=== PATIENT | female | born 1995 | race American Indian/Alaskan Native ===

== ENCOUNTER 2018-08-14 05:46 | Day surgery (SDC) | payer OTHER ==
[~2018-08-14 05:46] MED LIST: ANCEF/STERILE WATER 2 GM/20 ML 2 GM/20 ML SYRINGE IV NR
[2018-08-14] MEDS ORDERED: NACL BACTERIOSTATIC INFILTRATI ONE (06:20)
[2018-08-14] MEDS ORDERED: ADRENALIN IV ONE (06:26)
[2018-08-14] MEDS ORDERED: XYLOCAINE 1% 20 mL ONE ×2 (06:26→10:28)
[2018-08-14] MEDS ORDERED: NACL 0.9% 1000 ML 4,000 ML ONE (06:26)
[2018-08-14] MEDS ORDERED: XYLOCAINE 1%/ EPI 1:100,000 INFILTRATI ONE ×2 (06:27→08:42)
[2018-08-14] MEDS ORDERED: LACTATED RINGERS 1,000 ML IV SCH (07:00)
[2018-08-14] MEDS ORDERED: ADRENALINE P/F ONE ×2 (07:12→10:28)
[2018-08-14] MEDS ORDERED: SUBLIMAZE ONE ×2 (07:17→11:31)
[2018-08-14] MEDS ORDERED: DIPRIVAN 10 MG/ML IV ONE (07:17)
[2018-08-14] MEDS ORDERED: SUBLIMAZE IV PRN (07:22)
[2018-08-14] MEDS ORDERED: DILAUDID IV PRN (07:22)
[2018-08-14] MEDS ORDERED: ZOFRAN IV PRN ×2 (07:22→14:26)
[2018-08-14] MEDS ORDERED: DEMEROL IV PRN (07:22)
[2018-08-14] MEDS ORDERED: NARCAN 0.4 MG/1 ML IV PRN (07:22)
--- NOTE | 2018-08-14 07:22 | Anesthesia Consultation ---
Anesthesia Consult and Med Hx Date of service: 08/14/18 - Airway Anesthetic Teeth Evaluation: Good ROM Head & Neck: Adequate Mental/Hyoid Distance: Adequate Mallampati Class: Class II Intubation Access Assessment: Good - Pulmonary Exam CTA: Yes - Cardiac Exam Cardiac Exam: RRR - Pre-Operative Health Status ASA Pre-Surgery Classification: ASA3 Proposed Anesthetic Plan: General - Pulmonary Hx Smoking: Yes (HOOKAH SINCE AGE 17) Hx Asthma: Yes (RESCUE INHALER) - Central Nervous System Hx Psychiatric Problems: Yes - Other Systems Hx Alcohol Use: Yes Hx Substance Use: No Hx Cancer: No Hx Obesity: Yes
--- NOTE | 2018-08-14 07:22 | Anesthesia Day of Surgery ---
Anesthesia Day of Surgery - Day of Surgery Patient Examined: Yes Patient H&P Reviewed: Yes Patient is NPO: Yes Beta Blockers: No Cardiac Clearance: No Pulmonary Clearance: No
[2018-08-14] MEDS ORDERED: VERSED IV NR (08:00)
[2018-08-14] MEDS ORDERED: NACL 0.9% 1000 ML IR ONE ×2 (08:39)
[2018-08-14] MEDS ORDERED: ADRENALINE P/F IV ONE ×2 (08:40)
[2018-08-14] MEDS ORDERED: XYLOCAINE 1% 20 mL INFILTRATI ONE ×2 (08:41)
[2018-08-14] MEDS ORDERED: NACL 0.9% IR ONE (08:41)
[2018-08-14] MEDS ORDERED: DILAUDID ONE (09:33)
[2018-08-14] MEDS ORDERED: ZEMURON IV ONE (09:33)
[2018-08-14] MEDS ORDERED: XYLOCAINE MPF 2% ONE (09:33)
[2018-08-14] MEDS ORDERED: DECADRON ONE (09:33)
[2018-08-14] MEDS ORDERED: NACL 0.9% 1000 ML 1,000 ML ONE (10:28)
--- NOTE | 2018-08-14 12:37 | Post Anesthesia Evaluation ---
- Post Anesthesia Evaluation Patient Participated: Yes Airway Patent: Yes Stable Respiratory Function: Yes Nausea/Vomiting: No Temp > 96.8F: Yes Pain Manageable: Yes Adequeate Hydration: Yes Anesthesia Complications: No
[2018-08-14] MEDS ORDERED: ANCEF ONE (12:42)
[2018-08-14] MEDS ORDERED: ZOFRAN ONE (13:46)
[2018-08-14] MEDS ORDERED: BLOXIVERZ ONE (13:46)
[2018-08-14] MEDS ORDERED: ROBINUL ONE (13:46)
[2018-08-14] MEDS ORDERED: TORADOL ONE (14:09)
[2018-08-14] MEDS ORDERED: NORCO 7.5/325 PO PRN (14:26)
[2018-08-14] MEDS ORDERED: ROBAXIN PO PRN (14:26)
--- NOTE | 2018-08-14 14:26 | Operative Report ---
Operative Report Operative Report: Plastic Surgery Operative Note Preoperative Diagnosis: Unacceptable cosmetic appearance Postoperative Diagnosis: Same Procedure: Lipsuction of the upper and lower abdomen, full waistline with fat grafting to the buttocks and hips. 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 She was interested in using her fat to improve buttock volume and shape. We discussed liposuction with fat grafting to the buttocks and hips in great detail, including the risks of the procedure. The patient understood and accepted these risks and desired to proceed with surgery. Informed consent was obtained. Procedure: The patient was marked in preoperative holding and brought into the operating room where she was placed supine on the OR table. After induction of adequate general endotracheal anesthesia the abdomen was prepped with chlorhexidine and draped in the usual sterile surgical fashion. To begin, 1% lidocaine with epinephrine was infiltrated into the marked port entry sites. Using a No. 11 blade, cannula entry points were opened, and tumescent solution was infiltrated through these same incisions. A total of 4 L was infiltrated into the subcutaneous tissue of the abdomen. After allowing adequate time for epinephrine effect, power assisted liposuction was performed until the aspirate was bloody and a desireable contour was achieved. Fat was collected in a steri le cannister and allowed to separate from fluid aspirate by gravity. Incisions were closed with 4-0 Monocryl suture. The patient was then placed in the prone position and once again cannula entry sites were injected with local anesthesia and opened with an 11 blade. 1 L of tumescent solution was infiltrated into the subcutaneous tissue of the posterior waist, and power assisted liposuction used to remove excess fat. Once satisfied with the contour we began the fat grafting portion of the procedure. Using blunt large bore cannulas, fat was injected into the subcutaneous tissue of the buttocks and hips bilaterally until a desireable contour was achieved. A total of 1440cc of pure fat was injected on the right, and 1290cc was injected on the left. Once fat grafting was complete, 4-0 Monocryl was used to close all cannula entry points. All areas where incisions were placed were then dressed with abdominal pads and then a compression garment was placed. Patient was then awakened from general anesthesia and transferred to the PACU in stable condition. She tolerated the procedure well. All sponge needle and instrument counts were correct at the end of the case.
[2018-08-14] MEDS ORDERED: ISOPTO TEARS 0.5% OU PRN (15:27)
[2018-08-14 16:42] VITALS: BP 135/73
--- NOTE | 2018-08-14 16:55 | Post Anesthesia Evaluation ---
- Post Anesthesia Evaluation Patient Participated: Yes Airway Patent: Yes Stable Respiratory Function: Yes Nausea/Vomiting: No Temp > 96.8F: Yes Pain Manageable: Yes Adequeate Hydration: Yes Other Comments: Patient complained of bilateral blurry vision while in PACU which was not present preoperatively. No eye pain, normal light and color vision. VS at preop baseline and exam revealed bilateral eye redness only. At time of discharge, patient reported some improvement. Patient given artificial tears for use q6h as needed and instructed to follow up with ophthomology if vision not back to baseline by tomorrow morning. Patient given contact information for Dr. Poli Graham's office (I was told by rabbler that patient can be seen by Dr. Quintanilla as outpatient tomorrow if needed). Anesthesia provider will call patient tomorrow for follow up.
--- NOTE | 2018-08-15 14:30 | Event Note ---
Date: 08/15/18 (Attempted Phone Follow-Up) 08/15/18 - Attempted to contact patient as discussed yesterday regarding post-op blurred vision via cell phone number provided to me by the patient. No answer x3 and no option to leave voicemail. Attempted to contact NOK (Rupert Armstrong, Aunt) at number listed in EMR with no response.
--- NOTE | 2018-08-19 08:54 | Event Note ---
Date: 08/19/18 (Phone Follow-Up) 08/19/18 1291 - Spoke with Ms. Hodge via telephone regarding complaint of post- op blurred vision. She reports that after 4 days, vision returned to normal and is now at preop baseline. She did not require a visit to the ophthomologist. She has no additional anesthetic concerns at this time.
== END 2018-08-14 17:20 | disposition home or self-care (01) ==
LOC: OR 05:46
PROVIDERS: ATTEND Plastic Surgery
DX: Z41.1 Encounter for cosmetic surgery (principal); E66.9 Obesity, unspecified; F41.9 Anxiety disorder, unspecified; F17.210 Nicotine dependence, cigarettes, uncomplicated; Z72.89 Other problems related to lifestyle; Z68.41 Body mass index [BMI] 40.0-44.9, adult; Z79.899 Other long term (current) drug therapy; Z98.890 Other specified postprocedural states; Z80.3 Family history of malignant neoplasm of breast
CPT/HCPCS: 15877; 20926; 81025; J0171; J0690; J1100; J1170; J1885; J2250; J2405; J2704; J2710; J3010; J7030; J7120

== ENCOUNTER 2018-08-28 19:57 | Inpatient (IN) | payer BC, OTHER ==
--- NOTE | 2018-08-28 20:12 | Emergency Department Report ---
Blank Doc - Documentation Documentation: This is a 23-year-old female that presents with swelling and infection to left buttock area. Patient had a surgery to butt lift. Patient was sent by surgeon. This initial assessment/diagnostic orders/clinical plan/treatment(s) is/are subject to change based on patient's health status, clinical progression and re- assessment by fellow clinical providers in the ED. Further treatment and workup at subsequent clinical providers discretion. Patient/guardians urged not to francis pe from the ED as their condition may be serious if not clinically assessed and managed. Initial orders include: 1- Patient sent to MAIN ED for further evaluation and treatment 2- labs
[2018-08-28 20:38] LABS: Hematocrit 25.9 % (30.3-42.9); Hemoglobin 8.7 gm/dl (10.1-14.3); Mean Corpuscular HGB Conc 34 % (30-34); Mean Corpuscular Volume 87 fl (79-97); Platelet Count 790 K/mm3 (140-440); Red Blood Count 2.99 M/mm3 (3.65-5.03); Red Cell Distribution Width 14.1 % (13.2-15.2)
[2018-08-28 20:55] LABS: Alanine Aminotransferase 26 units/L (7-56); BUN/Creatinine Ratio 9; Blood Urea Nitrogen 7 mg/dL (7-17); Hemolysis Index 5
[2018-08-28 21:25] LABS: Basophils % (Manual) 0 % (0.0-1.8); Eosinophils % (Manual) 0 % (0.0-4.3); Total Cells Counted 100
[2018-08-28 21:26] LABS: Platelet Estimate Consistent w Auto
[2018-08-28] MEDS ORDERED: VANCOMYCIN/NS 1 GM/250 ML 1 GM/250 ML BAG IV ONE (21:26)
[2018-08-28] MEDS ORDERED: MAXIPIME/NS 1 GM/100 ML 1 GM/100 ML BAG IV ONE (21:26)
[2018-08-28 21:27] LABS: Anisocytosis Few; Hypersegmented Neutrophils Few; Stomatocytes Few
[2018-08-28] MEDS ORDERED: NACL 0.9% 1000 ML 1,000 ML IV ONE ×2 (21:41→23:26)
[2018-08-29] MEDS ORDERED: MORPHINE ONE
[2018-08-29] MEDS ORDERED: MORPHINE IV ONE (00:15)
--- NOTE | 2018-08-29 01:14 | Emergency Department Report ---
- General Chief complaint: Skin/Abscess/Foreign Body Stated complaint: INFECTION AFTER PLASTIC SURGERY Time Seen by Provider: 08/28/18 20:09 Source: patient Mode of arrival: Ambulatory Limitations: No Limitations - History of Present Illness Initial comments: 23-year-old female status post Liberian butt lift fat grafting procedure on August 14. Patient had a procedure performed here at [facility] by Dr. Hinkle. Patient reports a few days ago she began having pain in the left buttock. Patient states the area was warm to the touch. He reports fever of 102. Patient followed up with surgeon in her office on yesterday and was given a prescription for Bactrim. Patient continued to spike fevers, so surgeon instructed her to come to the ER so that she may be admitted for IV antibiotics. Pt reports left buttock has been hard since the surgery. -: days(s) (3) Location: buttocks Severity: moderate Quality: aching Consistency: constant Improves with: none, other (laying prone) Worsens with: palpation, other (laying supine) Context: other (recent surgery) Associated symptoms: fever Treatments Prior to Arrival: antibiotic (bactrim) - Related Data Home Medications Medication Instructions Recorded Confirmed Last Taken Albuterol Sulfate [Ventolin Hfa] 1 puff IH Q6H PRN 08/12/18 08/14/18 08/14/18 05:45 buPROPion SR [Wellbutrin Sr] 150 mg PO BID 08/12/18 08/14/18 08/14/18 04:45 Allergies Allergy/AdvReac Type Severity Reaction Status Date / Time No Known Allergies Allergy Verified 08/12/18 18:13 Abscess Boil HPI - HPI Chief Complaint: Skin/Abscess/Foreign Body Stated Complaint: INFECTION AFTER PLASTIC SURGERY Time Seen by Provider: 08/28/18 20:09 Home Medications: Home Medications Medication Instructions Recorded Confirmed Last Taken Albuterol Sulfate [Ventolin Hfa] 1 puff IH Q6H PRN 08/12/18 08/14/18 08/14/18 05:45 buPROPion SR [Wellbutrin Sr] 150 mg PO BID 08/12/18 08/14/18 08/14/18 04:45 Allergies/Adverse Reactions: Allergies Allergy/AdvReac Type Severity Reaction Status Date / Time No Known Allergies Allergy Verified 08/12/18 18:13 ED Review of Systems ROS: Stated complaint: INFECTION AFTER PLASTIC SURGERY Other details as noted in HPI Comment: All other systems reviewed and negative Constitutional: fever Respiratory: denies: cough, shortness of breath Gastrointestinal: denies: abdominal pain, nausea, vomiting Neurological: denies: headache ED Past Medical Hx - Past Medical History Hx Asthma: Yes (RESCUE INHALER) Hx HIV: No - Social History Smoking Status: Never Smoker Substance Use Type: None - Medications Home Medications: Home Medications Medication Instructions Recorded Confirmed Last Taken Type Albuterol Sulfate [Ventolin Hfa] 1 puff IH Q6H PRN 08/12/18 08/14/18 08/14/18 05:45 History buPROPion SR [Wellbutrin Sr] 150 mg PO BID 08/12/18 08/14/18 08/14/18 04:45 History ED Physical Exam - General Limitations: No Limitations General appearance: alert, in no apparent distress - Head Head exam: Present: atraumatic, normocephalic - Eye Eye exam: Present: normal appearance - ENT ENT exam: Present: mucous membranes moist - Neck Neck exam: Present: normal inspection - Respiratory Respiratory exam: Present: normal lung sounds bilaterally. Absent: respiratory distress - Cardiovascular Cardiovascular Exam: Present: normal rhythm, tachycardia - GI/Abdominal GI/Abdominal exam: Present: soft. Absent: distended, tenderness - Extremities Exam Extremities exam: Present: normal inspection - Neurological Exam Neurological exam: Present: alert, oriented X3 - Psychiatric Psychiatric exam: Present: normal affect, normal mood - Skin Skin exam: Present: other (left buttock is firm and indurated, warm, tender to palpation, no erythema or fluctuance appreciated) ED Course Vital Signs 08/28/18 08/28/18 08/28/18 20:06 21:32 21:45 Temperature 99.0 F Pulse Rate 117 H 106 H Respiratory 20 18 Rate Blood Pressure 101/77 122/61 O2 Sat by Pulse 81 L 84 97 Oximetry 08/28/18 08/28/18 08/28/18 22:00 22:15 22:31 Temperature Pulse Rate 99 H 98 H 103 H Respiratory 21 19 20 Rate Blood Pressure 127/61 123/64 123/64 O2 Sat by Pulse 97 96 99 Oximetry 08/28/18 22:45 Temperature Pulse Rate 101 H Respiratory 21 Rate Blood Pressure 123/64 O2 Sat by Pulse 97 Oximetry ED Medical Decision Making - Lab Data Result diagrams: 08/28/18 20:15 08/28/18 20:15 - Radiology Data Radiology results: report reviewed, image reviewed - Medical Decision Making 23 yo F w/ large intramuscular abscess of the left gluteal guillermo muscle. Pt has WBCs of 20, normal lactic acid. Pt has been slightly tachycardic with normal blood pressures. 2L bolus of normal saline given. Blood cultures drawn, pt started on vancomycin and cefepime. I spoke to pt's surgeon, Dr Hinkle. She is aware of CT findings. Will see pt in the morning. Will [facility] to [facility]. - Differential Diagnosis cellulitis, abscess, uti Critical care attestation.: If time is entered above; I have spent that time in minutes in the direct care of this critically ill patient, excluding procedure time. ED Disposition Clinical Impression: Gluteal abscess Disposition: OP ADMIT IP TO THIS HOSP Is pt being admited?: Yes Condition: Stable Referrals: MK SEVILLA MD [Primary Care Provider] - 3-5 Days Time of Disposition: 01:49
--- NOTE | 2018-08-29 01:17 | Cat Scan Report ---
PROCEDURE: CT PELVIS W CON TECHNIQUE: Computerized axial tomography of the pelvis was performed following the IV injection of i odinated nonionic contrast. CT DOSE LENGTH PRODUCT: mGycm HISTORY: fever, left buttock pain; s/p Cameroonian butt lift COMPARISONS: None . FINDINGS: There is a complex multi loculated fluid collection in the left gluteus guillermo muscle measuring appr oximately 7.6 x 12.4 x 5.3 cm suggesting an abscess. There is induration of the overlying subcutaneou s fat suggesting cellulitis. There is no subcutaneous or intramuscular air or foreign body. The bony structures are intact. The pelvic contents are unremarkable. IMPRESSION: Large complex intramuscular abscess of the left gluteus guillermo as described. . This document is electronically signed by Bry Guerrero MD., Aug 29 2018 01:15:56 AM ET
[2018-08-29 01:27] LABS: Bilirubin,Urine NEG (Negative); Blood,Urine NEG (Negative); Color,Urine Yellow (Yellow); Protein,Urine <15 mg/dL mg/dL (Negative); Urobilinogen,Urine < 2.0 mg/dL (<2.0); WBC,Urine < 1.0 /HPF (0.0-6.0)
[2018-08-29] MEDS ORDERED: ANCEF ONE (02:51)
[2018-08-29] MEDS ORDERED: ZOFRAN IV PRN (03:21)
[2018-08-29] MEDS ORDERED: SODIUM CHLORIDE FLUSH SYRINGE 10 ML IV PRN (03:21)
[2018-08-29] MEDS ORDERED: TYLENOL PO ONE (03:29)
--- NOTE | 2018-08-29 03:29 | History and Physical Report ---
History of Present Illness Date of examination: 08/29/18 History of present illness: 23-year-old lady with a history of PCOS, asthma, comes emergency room with complaints of pain in the left buttock. Status post Polish butt lift on the first, states that the left side was not healing as fast as the right. The left side felt hot, tight and pain ful. She saw her plastic surgeon yesterday who gave her Bactrim, Percocet, her symptoms worsen, develop fever and she was sent to the emergency room for further evaluation Review of systems Constitutional: no weight loss, chills Ears, eyes, nose, mouth and throat: no nasal congestion, no nasal discharge, no sinus pressure, no vision change, no red eye. Neck: No neck pain or rigidity. Cardiovascular: no palpitations, chest pain Respiratory: no cough, shortness of breath Gastrointestinal: no hematochezia, abdominal pain Genitourinary : no frequency , no hematuria Musculoskeletal: no joint swelling or muscle ache Integumentary: no rash, no pruritis Neurological: no parathesias, no focal weakness Endocrine: no cold or heat intolerance, no polyuria or polydipsia Hematologic/Lymphatic: no easy bruising, no easy bleeding, no gland swelling Allergic/Immunologic: no urticaria, no angioedema. PAST MEDICAL HISTORY: PCOS, asthma, PAST SURGICAL HISTORY: Polish butt lift SOCIAL HISTORY: +alcohol, no drugs,+ tobacco FAMILY HISTORY: Hypertension Medications and Allergies Allergies Allergy/AdvReac Type Severity Reaction Status Date / Time No Known Allergies Allergy Verified 08/12/18 18:13 Home Medications Medication Instructions Recorded Confirmed Last Taken Type Albuterol Sulfate [Ventolin Hfa] 1 puff IH Q6H PRN 08/12/18 08/29/18 08/14/18 05:45 History buPROPion SR [Wellbutrin SR] 150 mg PO BID 08/12/18 08/29/18 08/14/18 04:45 History Amoxicillin/K Clav Tab [Augmentin 1 each PO Q12HR #16 tablet 09/03/18 Unknown Rx 875MG TAB] Doxycycline Monohydrate 100 mg PO BID #16 capsule 09/03/18 Unknown Rx HYDROcodone/APAP 5-325 [Ava 1 each PO Q6HR PRN #10 tablet 09/03/18 Unknown Rx 5/325] Active Meds: Active Medications Acetaminophen (Tylenol) 650 mg PO Q4H PRN PRN Reason: Pain MILD(1-3)/Fever >100.5/SHIN Enoxaparin Sodium (Lovenox) 30 mg SUB-Q QDAY RYLEY Piperacillin Sod/Tazobactam Sod (Zosyn/Ns 4.5gm/100ml) 4.5 gm in 100 mls @ 200 mls/hr IV Q8HR RYLEY; Protocol Sodium Chloride (Nacl 0.9% 1000 Ml) 1,000 mls @ 150 mls/hr IV DIRECT RYLEY Morphine Sulfate (Morphine) 2 mg IV Q4H PRN PRN Reason: Pain, Moderate (4-6) Ondansetron HCl (Zofran) 4 mg IV Q8H PRN PRN Reason: Nausea And Vomiting Sodium Chloride (Sodium Chloride Flush Syringe 10 Ml) 10 ml IV BID RYLEY Sodium Chloride (Sodium Chloride Flush Syringe 10 Ml) 10 ml IV PRN PRN PRN Reason: LINE FLUSH Exam - Physical Exam Narrative exam: General Apperance: The patient lying in bed, breathing comfortable HEENT: Normocephalic, atraumatic. Pupils equally round and reactive to light, EOMI, no sclericterus or JVD or thyromegaly or nodule. , no carotid bruit, mucous membranes moist, no exudate or erythema Heart: S1-S2, regular is rhythm Lungs: Clear to auscultation bilaterally, breathing comfortable Abdomen: Positive bowel sounds, soft, nontender, nondistended, no organomegaly Extremities: Left buttock diffusely tender, warm to touch, edematous No edema cyanosis clubbing Skin: no rash, nodule, warm and dry Neuro: cranial nerves 2-12 intact, speech is fluent, motor/sensory intact - Constitutional Vitals: Temp Pulse Resp BP Pulse Ox 103.1 F H 110 H 25 H 122/62 97 08/29/18 03:24 08/29/18 03:24 08/29/18 03:24 08/29/18 03:24 08/29/18 03:24 Results - Labs CBC & Chem 7: 09/02/18 11:33 08/30/18 04:34 Labs: Abnormal lab results 08/28/18 08/28/18 08/29/18 Range/Units 20:15 20:15 01:10 WBC 20.4 H (4.5-11.0) K/mm3 RBC 2.99 L (3.65-5.03) M/mm3 Hgb 8.7 L (10.1-14.3) gm/dl Hct 25.9 L (30.3-42.9) % Plt Count 790 H (140-440) K/mm3 Monocytes % (Manual) 10.0 H (0.0-7.3) % Seg Neutrophils # Man 13.7 H (1.8-7.7) K/mm3 Monocytes # (Manual) 2.0 H (0.0-0.8) K/mm3 Sodium 132 L (137-145) mmol/L Chloride 93.2 L (98-107) mmol/L Glucose 112 H (65-100) mg/dL Albumin 3.0 L (3.9-5) g/dL U Epithel Cells (Auto) 16.0 H (0-13.0) /HPF - Imaging and Cardiology CT scan - pelvis: report reviewed Assessment and Plan Assessment Left buttock abscess Hyponatremia PCOS Asthma Plan Start IV vancomycin, Zosyn, fluid surgery was consulted to see the patient Appendectomy morphine, DVT prophylaxis
[2018-08-29] MEDS ORDERED: TYLENOL ONE ×2 (03:34→10:44)
[2018-08-29] MEDS ORDERED: NACL 0.9% 1000 ML 1,000 ML ONE (03:34)
[2018-08-29] MEDS: ZOSYN/NS 4.5GM/100ML 4.5 GM/100 ML VIAL IV SCH ×3 (04:00→21:00)
[2018-08-29] MEDS: NACL 0.9% 1000 ML 1,000 ML IV SCH (05:48)
[2018-08-29] MEDS: MORPHINE IV PRN ×3 (06:32→18:30)
--- NOTE | 2018-08-29 08:40 | Progress Note ---
Subjective Date of service: 08/29/18 Principal diagnosis: Left gluteal abscess Interval history: Plastic Surgery Progress Note This patient is a Objective - Constitutional Vitals: Vital Signs - 12hr 08/28/18 08/28/18 08/28/18 21:32 21:45 22:00 Temperature Pulse Rate 106 H 99 H Respiratory 18 20 Rate Blood Pressure 122/61 127/61 Blood Pressure [Left] O2 Sat by Pulse 84 97 97 Oximetry 08/28/18 08/28/18 08/28/18 22:15 22:31 22:45 Temperature Pulse Rate 98 H 103 H 101 H Respiratory 19 20 21 Rate Blood Pressure 123/64 123/64 123/64 Blood Pressure [Left] O2 Sat by Pulse 96 99 97 Oximetry 08/29/18 08/29/18 08/29/18 03:24 04:41 05:27 Temperature 103.1 F H 99.9 F H 98.8 F Pulse Rate 110 H 99 H 100 H Respiratory 25 H 19 20 Rate Blood Pressure 110/50 Blood Pressure 122/62 97/55 [Left] O2 Sat by Pulse 97 99 95 Oximetry 08/29/18 08/29/18 05:34 07:28 Temperature 98.4 F Pulse Rate 92 H Respiratory 18 18 Rate Blood Pressure 134/69 Blood Pressure [Left] O2 Sat by Pulse 96 Oximetry - Labs CBC & Chem 7: 08/28/18 20:15 08/28/18 20:15 Labs: Abnormal lab results 08/28/18 08/28/18 08/29/18 Range/Units 20:15 20:15 01:10 WBC 20.4 H (4.5-11.0) K/mm3 RBC 2.99 L (3.65-5.03) M/mm3 Hgb 8.7 L (10.1-14.3) gm/dl Hct 25.9 L (30.3-42.9) % Plt Count 790 H (140-440) K/mm3 Monocytes % (Manual) 10.0 H (0.0-7.3) % Seg Neutrophils # Man 13.7 H (1.8-7.7) K/mm3 Monocytes # (Manual) 2.0 H (0.0-0.8) K/mm3 Sodium 132 L (137-145) mmol/L Chloride 93.2 L (98-107) mmol/L Glucose 112 H (65-100) mg/dL Albumin 3.0 L (3.9-5) g/dL U Epithel Cells (Auto) 16.0 H (0-13.0) /HPF Medications & Allergies - Medications Allergies/Adverse Reactions: Allergies No Known Allergies Allergy (Verified 08/12/18 18:13) Home Medications: Home Medications Medication Instructions Recorded Confirmed Last Taken Type Albuterol Sulfate [Ventolin Hfa] 1 puff IH Q6H PRN 08/12/18 08/14/18 08/14/18 05:45 History buPROPion SR [Wellbutrin Sr] 150 mg PO BID 08/12/18 08/14/18 08/14/18 04:45 History Active Medications: Generic Name Dose Route Start Last Admin Trade Name Freq PRN Reason Stop Dose Admin Acetaminophen 650 mg 08/29/18 03:21 Tylenol PO Q4H PRN Pain MILD(1-3)/Fever >100.5/SHIN Enoxaparin Sodium 40 mg 08/29/18 10:00 Lovenox SUB-Q QDAY@1000 RYLEY Piperacillin Sod/Tazobactam Sod 4.5 gm in 100 mls @ 200 mls/hr 08/29/18 03:20 08/29/18 04:00 Zosyn/Ns 4.5gm/100ml IV 200 mls/hr Q8HR RYLEY Administration Protocol Sodium Chloride 1,000 mls @ 150 mls/hr 08/29/18 04:00 08/29/18 05:48 Nacl 0.9% 1000 Ml IV 150 mls/hr DIRECT RYLEY Administration Morphine Sulfate 2 mg 08/29/18 03:21 08/29/18 06:32 Morphine IV 2 mg Q4H PRN Administration Pain, Moderate (4-6) Ondansetron HCl 4 mg 08/29/18 03:21 08/29/18 06:36 Zofran IV 4 mg Q8H PRN Administration Nausea And Vomiting Sodium Chloride 10 ml 08/29/18 10:00 Sodium Chloride Flush Syringe 10 Ml IV BID RYLEY Sodium Chloride 10 ml 08/29/18 03:21 Sodium Chloride Flush Syringe 10 Ml IV PRN PRN LINE FLUSH
[2018-08-29] MEDS ORDERED: LOVENOX SUB-Q SCH (10:00)
[2018-08-29] MEDS ORDERED: SUBLIMAZE IV ONE ×2 (10:12→11:27)
[2018-08-29] MEDS ORDERED: VERSED IV ONE ×2 (10:12→10:26)
[2018-08-29] MEDS ORDERED: SUBLIMAZE ONE ×2 (10:26→11:28)
[2018-08-29] MEDS ORDERED: NACL 0.9% 500 ML 0 ML ONE (10:27)
[2018-08-29] MEDS: LOVENOX SUB-Q SCH (10:39)
[2018-08-29] MEDS ORDERED: ANCEF/STERILE WATER 2 GM/20 ML 2 GM/20 ML SYRINGE IV ONE (10:43)
[2018-08-29] MEDS: TYLENOL PO PRN ×2 (10:45→20:59)
[2018-08-29] MEDS ORDERED: ANCEF/STERILE WATER 2 GM/20 ML IV NR (11:00)
[2018-08-29] MEDS ORDERED: XYLOCAINE 1%/ EPI 1:100,000 INFILTRATI ONE (11:18)
--- NOTE | 2018-08-29 12:14 | Post Operative Note ---
Date of procedure: 08/29/18 Pre-op diagnosis: Large left gluteal multiloculated abscess Post-op diagnosis: same Findings: Near resolution of collection after drainage. 250 mL purulent fluid removed. Procedure: [address] guided drainage in the left gluteal intramuscular abscess Anesthesia: local (w/ conscious sedation) Surgeon: DEMOND HOLDER Estimated blood loss: minimal Condition: stable Disposition: floor
[2018-08-29] MEDS: SODIUM CHLORIDE FLUSH SYRINGE 10 ML IV SCH ×2 (13:39→22:23)
--- NOTE | 2018-08-29 16:40 | Progress Note ---
Subjective Date of service: 08/29/18 Principal diagnosis: Left gluteal abscess Interval history: Plastic Surgery Progress Patient underwent IR drainage of left gluteal abscess by Dr. Velez and is feeling much better than she was this morning. She is tired and reports tightness like spasms on occasion. Not much appetite. No cp, sob. Exam: T: 99.4, VSS Left buttock softer, more even with the right, IR drain in place, purulent fluid output. Unchanged redness. Plan: Continue IV Abx (switched to Zosyn) Encouraged PO intake as tolerated Will add Robaxin first dose now and then prn muscle spasm Follow up cultures Will re-assess tomorrow Objective - Constitutional Vitals: Vital Signs - 12hr 08/29/18 08/29/18 08/29/18 04:41 05:27 05:34 Temperature 99.9 F H 98.8 F Temperature [ Post-Procedure] Temperature [ Pre-Procedure] Pulse Rate 99 H 100 H Pulse Rate [ Intra-Procedure ] Pulse Rate [ Post-Procedure] Pulse Rate [Pre -Procedure] Respiratory 19 20 18 Rate Respiratory Rate [Intra- Procedure] Respiratory Rate [Post- Procedure] Respiratory Rate [Pre- Procedure] Blood Pressure 110/50 Blood Pressure [Intra- Procedure] Blood Pressure 97/55 [Left] Blood Pressure [Post-Procedure ] Blood Pressure [Pre-Procedure] O2 Sat by Pulse 99 95 Oximetry O2 Sat by Pulse Oximetry [ Intra-Procedure ] O2 Sat by Pulse Oximetry [Post -Procedure] O2 Sat by Pulse Oximetry [Pre- Procedure] 08/29/18 08/29/18 08/29/18 07:28 10:38 11:03 Temperature 98.4 F Temperature [ Post-Procedure] Temperature [ 101.5 F H Pre-Procedure] Pulse Rate 92 H Pulse Rate [ Intra-Procedure ] Pulse Rate [ Post-Procedure] Pulse Rate [Pre 104 H 103 H -Procedure] Respiratory 18 Rate Respiratory Rate [Intra- Procedure] Respiratory Rate [Post- Procedure] Respiratory 16 21 Rate [Pre- Procedure] Blood Pressure 134/69 Blood Pressure [Intra- Procedure] Blood Pressure [Left] Blood Pressure [Post-Procedure ] Blood Pressure 138/68 106/56 [Pre-Procedure] O2 Sat by Pulse 96 Oximetry O2 Sat by Pulse Oximetry [ Intra-Procedure ] O2 Sat by Pulse Oximetry [Post -Procedure] O2 Sat by Pulse 96 100 Oximetry [Pre- Procedure] 08/29/18 08/29/18 08/29/18 11:09 11:10 11:12 Temperature Temperature [ Post-Procedure] Temperature [ Pre-Procedure] Pulse Rate Pulse Rate [ 100 H Intra-Procedure ] Pulse Rate [ Post-Procedure] Pulse Rate [Pre 101 H -Procedure] Respiratory 18 Rate Respiratory 19 Rate [Intra- Procedure] Respiratory Rate [Post- Procedure] Respiratory 21 Rate [Pre- Procedure] Blood Pressure Blood Pressure 102/56 [Intra- Procedure] Blood Pressure [Left] Blood Pressure [Post-Procedure ] Blood Pressure 120/56 [Pre-Procedure] O2 Sat by Pulse Oximetry O2 Sat by Pulse 99 Oximetry [ Intra-Procedure ] O2 Sat by Pulse Oximetry [Post -Procedure] O2 Sat by Pulse 99 Oximetry [Pre- Procedure] 08/29/18 08/29/18 08/29/18 11:17 11:23 11:28 Temperature Temperature [ Post-Procedure] Temperature [ Pre-Procedure] Pulse Rate Pulse Rate [ 101 H 104 H 103 H Intra-Procedure ] Pulse Rate [ Post-Procedure] Pulse Rate [Pre -Procedure] Respiratory 18 Rate Respiratory 20 20 18 Rate [Intra- Procedure] Respiratory Rate [Post- Procedure] Respiratory Rate [Pre- Procedure] Blood Pressure Blood Pressure 119/70 123/67 117/61 [Intra- Procedure] Blood Pressure [Left] Blood Pressure [Post-Procedure ] Blood Pressure [Pre-Procedure] O2 Sat by Pulse Oximetry O2 Sat by Pulse 98 98 99 Oximetry [ Intra-Procedure ] O2 Sat by Pulse Oximetry [Post -Procedure] O2 Sat by Pulse Oximetry [Pre- Procedure] 08/29/18 08/29/18 08/29/18 11:33 11:38 11:41 Temperature Temperature [ Post-Procedure] Temperature [ Pre-Procedure] Pulse Rate Pulse Rate [ 101 H 106 H Intra-Procedure ] Pulse Rate [ Post-Procedure] Pulse Rate [Pre -Procedure] Respiratory 18 Rate Respiratory 21 14 Rate [Intra- Procedure] Respiratory Rate [Post- Procedure] Respiratory Rate [Pre- Procedure] Blood Pressure Blood Pressure 117/54 110/54 [Intra- Procedure] Blood Pressure [Left] Blood Pressure [Post-Procedure ] Blood Pressure [Pre-Procedure] O2 Sat by Pulse Oximetry O2 Sat by Pulse 100 99 Oximetry [ Intra-Procedure ] O2 Sat by Pulse Oximetry [Post -Procedure] O2 Sat by Pulse Oximetry [Pre- Procedure] 08/29/18 08/29/18 08/29/18 11:43 11:45 11:57 Temperature Temperature [ 98.9 F Post-Procedure] Temperature [ Pre-Procedure] Pulse Rate Pulse Rate [ Intra-Procedure ] Pulse Rate [ 101 H 101 H Post-Procedure] Pulse Rate [Pre -Procedure] Respiratory 18 Rate Respiratory Rate [Intra- Procedure] Respiratory 20 21 Rate [Post- Procedure] Respiratory Rate [Pre- Procedure] Blood Pressure Blood Pressure [Intra- Procedure] Blood Pressure [Left] Blood Pressure 122/65 119/56 [Post-Procedure ] Blood Pressure [Pre-Procedure] O2 Sat by Pulse Oximetry O2 Sat by Pulse Oximetry [ Intra-Procedure ] O2 Sat by Pulse 99 99 Oximetry [Post -Procedure] O2 Sat by Pulse Oximetry [Pre- Procedure] 08/29/18 08/29/18 08/29/18 12:02 12:12 12:28 Temperature Temperature [ Post-Procedure] Temperature [ Pre-Procedure] Pulse Rate Pulse Rate [ Intra-Procedure ] Pulse Rate [ 96 H 99 H Post-Procedure] Pulse Rate [Pre -Procedure] Respiratory 16 Rate Respiratory Rate [Intra- Procedure] Respiratory 20 21 Rate [Post- Procedure] Respiratory Rate [Pre- Procedure] Blood Pressure Blood Pressure [Intra- Procedure] Blood Pressure [Left] Blood Pressure 114/64 114/64 [Post-Procedure ] Blood Pressure [Pre-Procedure] O2 Sat by Pulse Oximetry O2 Sat by Pulse Oximetry [ Intra-Procedure ] O2 Sat by Pulse 95 99 Oximetry [Post -Procedure] O2 Sat by Pulse Oximetry [Pre- Procedure] 08/29/18 12:41 Temperature 98.7 F Temperature [ Post-Procedure] Temperature [ Pre-Procedure] Pulse Rate 99 H Pulse Rate [ Intra-Procedure ] Pulse Rate [ Post-Procedure] Pulse Rate [Pre -Procedure] Respiratory 18 Rate Respiratory Rate [Intra- Procedure] Respiratory Rate [Post- Procedure] Respiratory Rate [Pre- Procedure] Blood Pressure 117/67 Blood Pressure [Intra- Procedure] Blood Pressure [Left] Blood Pressure [Post-Procedure ] Blood Pressure [Pre-Procedure] O2 Sat by Pulse 96 Oximetry O2 Sat by Pulse Oximetry [ Intra-Procedure ] O2 Sat by Pulse Oximetry [Post -Procedure] O2 Sat by Pulse Oximetry [Pre- Procedure] - Labs CBC & Chem 7: 08/28/18 20:15 08/28/18 20:15 Labs: Abnormal lab results 08/28/18 08/28/18 08/29/18 Range/Units 20:15 20:15 01:10 WBC 20.4 H (4.5-11.0) K/mm3 RBC 2.99 L (3.65-5.03) M/mm3 Hgb 8.7 L (10.1-14.3) gm/dl Hct 25.9 L (30.3-42.9) % Plt Count 790 H (140-440) K/mm3 Monocytes % (Manual) 10.0 H (0.0-7.3) % Seg Neutrophils # Man 13.7 H (1.8-7.7) K/mm3 Monocytes # (Manual) 2.0 H (0.0-0.8) K/mm3 Sodium 132 L (137-145) mmol/L Chloride 93.2 L (98-107) mmol/L Glucose 112 H (65-100) mg/dL Albumin 3.0 L (3.9-5) g/dL U Epithel Cells (Auto) 16.0 H (0-13.0) /HPF Medications & Allergies - Medications Allergies/Adverse Reactions: Allergies No Known Allergies Allergy (Verified 08/12/18 18:13) Home Medications: Home Medications Medication Instructions Recorded Confirmed Last Taken Type Albuterol Sulfate [Ventolin Hfa] 1 puff IH Q6H PRN 08/12/18 08/29/18 08/14/18 05:45 History buPROPion SR [Wellbutrin Sr] 150 mg PO BID 08/12/18 08/29/18 08/14/18 04:45 History Active Medications: Generic Name Dose Route Start Last Admin Trade Name Freq PRN Reason Stop Dose Admin Acetaminophen 650 mg 08/29/18 03:21 08/29/18 10:45 Tylenol PO 650 mg Q4H PRN Administration Pain MILD(1-3)/Fever >100.5/SHIN Cefazolin Sodium 2 gm 08/29/18 11:00 08/29/18 10:45 Ancef/Sterile Water 2 Gm/20 Ml IV 08/29/18 23:59 2 gm PREOP NR Administration Enoxaparin Sodium 40 mg 08/29/18 10:00 08/29/18 10:39 Lovenox SUB-Q Not Given QDAY@1000 RYLEY Piperacillin Sod/Tazobactam Sod 4.5 gm in 100 mls @ 200 mls/hr 08/29/18 03:20 08/29/18 13:37 Zosyn/Ns 4.5gm/100ml IV 200 mls/hr Q8HR RYLEY Administration Protocol Sodium Chloride 1,000 mls @ 150 mls/hr 08/29/18 04:00 08/29/18 05:48 Nacl 0.9% 1000 Ml IV 150 mls/hr DIRECT RYLEY Administration Morphine Sulfate 2 mg 08/29/18 03:21 08/29/18 13:39 Morphine IV 2 mg Q4H PRN Administration Pain, Moderate (4-6) Ondansetron HCl 4 mg 08/29/18 03:21 08/29/18 06:36 Zofran IV 4 mg Q8H PRN Administration Nausea And Vomiting Sodium Chloride 10 ml 08/29/18 10:00 08/29/18 13:39 Sodium Chloride Flush Syringe 10 Ml IV 10 ml BID RYLEY Administration Sodium Chloride 10 ml 08/29/18 03:21 Sodium Chloride Flush Syringe 10 Ml IV PRN PRN LINE FLUSH
[2018-08-29] MEDS ORDERED: ROBAXIN PO STA (16:42)
[2018-08-29] MEDS: ROBAXIN PO PRN (22:23)
[2018-08-30] MEDS: MORPHINE IV PRN ×5 (01:21→20:00)
[2018-08-30] MEDS: NACL 0.9% 1000 ML 1,000 ML IV SCH ×3 (01:22→20:25)
[2018-08-30 04:55] LABS: Basophils % (Auto) 0.1 % (0.0-1.8); Eosinophils # (Auto) 0.1 K/mm3 (0.0-0.4); Eosinophils % (Auto) 0.4 % (0.0-4.3); Hematocrit 22.6 % (30.3-42.9); Hemoglobin 7.6 gm/dl (10.1-14.3); Lymphocytes # (Auto) 2.7 K/mm3 (1.2-5.4); Lymphocytes % (Auto) 18.1 % (13.4-35.0); Mean Corpuscular HGB Conc 34 % (30-34); Mean Corpuscular Volume 87 fl (79-97); Monocytes # (Auto) 1.5 K/mm3 (0.0-0.8); Monocytes % (Auto) 10.2 % (0.0-7.3); Platelet Count 698 K/mm3 (140-440); Red Blood Count 2.61 M/mm3 (3.65-5.03); Red Cell Distribution Width 14.3 % (13.2-15.2)
[2018-08-30 05:18] LABS: BUN/Creatinine Ratio 10; Blood Urea Nitrogen 6 mg/dL (7-17); Calcium 8.8 mg/dL (8.4-10.2); Hemolysis Index 0
[2018-08-30] MEDS: ROBAXIN PO PRN (05:36)
[2018-08-30] MEDS: ZOSYN/NS 4.5GM/100ML 4.5 GM/100 ML VIAL IV SCH ×3 (05:42→22:07)
[2018-08-30] MEDS: LOVENOX SUB-Q SCH (09:41)
[2018-08-30] MEDS: SODIUM CHLORIDE FLUSH SYRINGE 10 ML IV SCH ×2 (09:52→22:07)
--- NOTE | 2018-08-30 10:26 | Progress Note ---
Assessment and Plan The patient will need the drainage catheter in place until output has decreased. She will need to be placed on antibiotics per primary team. Subjective Date of service: 08/30/18 Principal diagnosis: Left gluteal abscess Interval history: Patient is status post drainage of gluteal abscess. Drainage catheter in place with moderate drainage. The patient symptomatically is much improved with much less pain and swelling. Objective - Constitutional Vitals: Vital Signs - 12hr 08/30/18 08/30/18 08/30/18 01:26 04:29 07:00 Temperature 98.1 F 98.2 F 98.4 F Pulse Rate 86 91 H 92 H Respiratory 16 16 18 Rate Blood Pressure 106/64 113/65 Blood Pressure 106/61 [Left] O2 Sat by Pulse 98 97 99 Oximetry 08/30/18 07:41 Temperature Pulse Rate 87 Respiratory Rate Blood Pressure Blood Pressure [Left] O2 Sat by Pulse 98 Oximetry General appearance: Present: no acute distress - EENT Eyes: EOM intact ENT: hearing intact - Neck Neck: supple - Respiratory Respiratory effort: normal Extremities: abnormal - Gastrointestinal General gastrointestinal: Present: deferred Rectal Exam: deferred - Genitourinary Female genitourinary: deferred - Psychiatric Psychiatric: appropriate mood/affect, cooperative - Labs CBC & Chem 7: 08/30/18 04:34 08/30/18 04:34 Labs: Abnormal lab results 08/30/18 08/30/18 Range/Units 04:34 04:34 WBC 14.9 H (4.5-11.0) K/mm3 RBC 2.61 L (3.65-5.03) M/mm3 Hgb 7.6 L (10.1-14.3) gm/dl Hct 22.6 L (30.3-42.9) % Plt Count 698 H (140-440) K/mm3 [place] % (Auto) 10.2 H (0.0-7.3) % [place] # 1.5 H (0.0-0.8) K/mm3 Seg Neutrophils % 71.2 H (40.0-70.0) % Seg Neutrophils # 10.6 H (1.8-7.7) K/mm3 Sodium 135 L (137-145) mmol/L BUN 6 L (7-17) mg/dL Creatinine 0.6 L (0.7-1.2) mg/dL Glucose 106 H (65-100) mg/dL Medications & Allergies - Medications Allergies/Adverse Reactions: Allergies No Known Allergies Allergy (Verified 08/12/18 18:13) Home Medications: Home Medications Medication Instructions Recorded Confirmed Last Taken Type Albuterol Sulfate [Ventolin Hfa] 1 puff IH Q6H PRN 08/12/18 08/29/18 08/14/18 05:45 History buPROPion SR [Wellbutrin Sr] 150 mg PO BID 08/12/18 08/29/18 08/14/18 04:45 Hist ory Active Medications: Generic Name Dose Route Start Last Admin Trade Name Freq PRN Reason Stop Dose Admin Acetaminophen 650 mg 08/29/18 03:21 08/29/18 20:59 Tylenol PO 650 mg Q4H PRN Administration Pain MILD(1-3)/Fever >100.5/SHIN Enoxaparin Sodium 40 mg 08/29/18 10:00 08/30/18 09:41 Lovenox SUB-Q 40 mg QDAY@1000 RYLEY Administration Piperacillin Sod/Tazobactam Sod 4.5 gm in 100 mls @ 200 mls/hr 08/29/18 03:20 08/30/18 05:42 Zosyn/Ns 4.5gm/100ml IV 200 mls/hr Q8HR RYLEY Administration Protocol Sodium Chloride 1,000 mls @ 150 mls/hr 08/29/18 04:00 08/30/18 09:47 Nacl 0.9% 1000 Ml IV 150 mls/hr DIRECT RYLEY Administration Methocarbamol 750 mg 08/29/18 01:00 08/30/18 05:36 Robaxin PO 750 mg Q8H PRN Administration Muscle Spasm Morphine Sulfate 2 mg 08/29/18 03:21 08/30/18 09:41 Morphine IV 2 mg Q4H PRN Administration Pain, Moderate (4-6) Ondansetron HCl 4 mg 08/29/18 03:21 08/29/18 06:36 Zofran IV 4 mg Q8H PRN Administration Nausea And Vomiting Sodium Chloride 10 ml 08/29/18 10:00 08/30/18 09:52 Sodium Chloride Flush Syringe 10 Ml IV 10 ml BID RYLEY Administration Sodium Chloride 10 ml 08/29/18 03:21 Sodium Chloride Flush Syringe 10 Ml IV PRN PRN LINE FLUSH
--- NOTE | 2018-08-30 11:03 | Progress Note ---
Subjective Date of service: 08/30/18 Principal diagnosis: Left gluteal abscess Interval history: Plastic Surgery Progress Pt spiked to 100.4 overnight but is currently afebrile. Comfortable in bed. T: 98.6 VSS Left buttock improved, decreased erythema, tenderness, decreased drain outputs. Plan: Continue IV abx, f/u cultures to tailor PO. Will keep drain in place until outputs all the way down and remove as outpatient if discharged. OOB, ambulate as tolerated. Objective - Constitutional Vitals: Vital Signs - 12hr 08/30/18 08/30/18 08/30/18 01:26 04:29 07:00 Temperature 98.1 F 98.2 F 98.4 F Pulse Rate 86 91 H 92 H Respiratory 16 16 18 Rate Blood Pressure 106/64 113/65 Blood Pressure 106/61 [Left] O2 Sat by Pulse 98 97 99 Oximetry 08/30/18 07:41 Temperature Pulse Rate 87 Respiratory Rate Blood Pressure Blood Pressure [Left] O2 Sat by Pulse 98 Oximetry - Labs CBC & Chem 7: 08/30/18 04:34 08/30/18 04:34 Labs: Abnormal lab results 08/30/18 08/30/18 Range/Units 04:34 04:34 WBC 14.9 H (4.5-11.0) K/mm3 RBC 2.61 L (3.65-5.03) M/mm3 Hgb 7.6 L (10.1-14.3) gm/dl Hct 22.6 L (30.3-42.9) % Plt Count 698 H (140-440) K/mm3 [place] % (Auto) 10.2 H (0.0-7.3) % [place] # 1.5 H (0.0-0.8) K/mm3 Seg Neutrophils % 71.2 H (40.0-70.0) % Seg Neutrophils # 10.6 H (1.8-7.7) K/mm3 Sodium 135 L (137-145) mmol/L BUN 6 L (7-17) mg/dL Creatinine 0.6 L (0.7-1.2) mg/dL Glucose 106 H (65-100) mg/dL Medications & Allergies - Medications Allergies/Adverse Reactions: Allergies No Known Allergies Allergy (Verified 08/12/18 18:13) Home Medications: Home Medications Medication Instructions Recorded Confirmed Last Taken Type Albuterol Sulfate [Ventolin Hfa] 1 puff IH Q6H PRN 08/12/18 08/29/18 08/14/18 05:45 History buPROPion SR [Wellbutrin Sr] 150 mg PO BID 08/12/18 08/29/18 08/14/18 04:45 Hist ory Active Medications: Generic Name Dose Route Start Last Admin Trade Name Freq PRN Reason Stop Dose Admin Acetaminophen 650 mg 08/29/18 03:21 08/29/18 20:59 Tylenol PO 650 mg Q4H PRN Administration Pain MILD(1-3)/Fever >100.5/SHIN Enoxaparin Sodium 40 mg 08/29/18 10:00 08/30/18 09:41 Lovenox SUB-Q 40 mg QDAY@1000 RYLEY Administration Piperacillin Sod/Tazobactam Sod 4.5 gm in 100 mls @ 200 mls/hr 08/29/18 03:20 08/30/18 05:42 Zosyn/Ns 4.5gm/100ml IV 200 mls/hr Q8HR RYLEY Administration Protocol Sodium Chloride 1,000 mls @ 150 mls/hr 08/29/18 04:00 08/30/18 09:47 Nacl 0.9% 1000 Ml IV 150 mls/hr DIRECT RYLEY Administration Methocarbamol 1,000 mg/ Sodium 260 mls @ 250 mls/hr 08/30/18 14:00 Chloride IV Q8HR RYLEY Methocarbamol 750 mg 08/29/18 01:00 08/30/18 05:36 Robaxin PO 750 mg Q8H PRN Administration Muscle Spasm Morphine Sulfate 2 mg 08/29/18 03:21 08/30/18 09:41 Morphine IV 2 mg Q4H PRN Administration Pain, Moderate (4-6) Ondansetron HCl 4 mg 08/29/18 03:21 08/29/18 06:36 Zofran IV 4 mg Q8H PRN Administration Nausea And Vomiting Sodium Chloride 10 ml 08/29/18 10:00 08/30/18 09:52 Sodium Chloride Flush Syringe 10 Ml IV 10 ml BID RYLEY Administration Sodium Chloride 10 ml 08/29/18 03:21 Sodium Chloride Flush Syringe 10 Ml IV PRN PRN LINE FLUSH
--- NOTE | 2018-08-30 11:57 | Progress Note ---
Assessment and Plan Assessment and plan: 23F with left buttock pain, swelling and abscess, sp recent fat transfer to her buttokcs Left buttock abscess sepsis Hyponatremia PCOS Asthma sp, drain by IR in place mgt per surgery cont abx sp IVF dvt ppx early ambulation History Interval history: continues to co r buttock pain Review of systems Constitutional: No fevers, no malaise, no joint pains CVS: No chest pain, no orthopnea, no pedal edema GI: No abdominal pain, no diarrhea, no vomiting, no constipation Respiratory: No shortness of breath, no wheezing, no coughing Hospitalist Physical - Physical exam Narrative exam: General.: Appears well, no distress, nontoxic HEENT: Moist mucous membranes, extraocular muscles intact, no lymphadenopathy Neck: supple Cardiac: S1-S2 heard Lungs: clear to auscultation bilaterally Abdomen: soft , nontender, nondistended, bowel sounds positive Extremities: no edema clubbing or cyanosis Skin: no rash or lesions Right buttock tenderness, drain in place Neurologic: no gross focal deficits Psych: calm, and cooperative - Constitutional Vitals: Temp Pulse Resp BP Pulse Ox 98.4 F 87 18 106/61 98 08/30/18 07:00 08/30/18 07:41 08/30/18 07:00 08/30/18 07:00 08/30/18 07:41 General appearance: Present: no acute distress Results - Labs CBC & Chem 7: 08/30/18 04:34 08/30/18 04:34 Labs: Laboratory Last Values WBC 14.9 K/mm3 (4.5-11.0) H 08/30/18 04:34 RBC 2.61 M/mm3 (3.65-5.03) L 08/30/18 04:34 Hgb 7.6 gm/dl (10.1-14.3) L 08/30/18 04:34 Hct 22.6 % (30.3-42.9) L 08/30/18 04:34 MCV 87 fl (79-97) 08/30/18 04:34 MCH 29 pg (28-32) 08/30/18 04:34 MCHC 34 % (30-34) 08/30/18 04:34 RDW 14.3 % (13.2-15.2) 08/30/18 04:34 Plt Count 698 K/mm3 (140-440) H 08/30/18 04:34 Lymph % (Auto) 18.1 % (13.4-35.0) 08/30/18 04:34 [place] % (Auto) 10.2 % (0.0-7.3) H 08/30/18 04:34 Eos % (Auto) 0.4 % (0.0-4.3) 08/30/18 04:34 Baso % (Auto) 0.1 % (0.0-1.8) 08/30/18 04:34 Lymph # 2.7 K/mm3 (1.2-5.4) 08/30/18 04:34 [place] # 1.5 K/mm3 (0.0-0.8) H 08/30/18 04:34 Eos # 0.1 K/mm3 (0.0-0.4) 08/30/18 04:34 Baso # 0.0 K/mm3 (0.0-0.1) 08/30/18 04:34 Add Manual Diff Complete 08/28/18 20:15 Total Counted 100 08/28/18 20:15 Seg Neutrophils % 71.2 % (40.0-70.0) H 08/30/18 04:34 Seg Neuts % (Manual) 67.0 % (40.0-70.0) 08/28/18 20:15 0 % 08/28/18 20:15 22.0 % (13.4-35.0) 08/28/18 20:15 Reactive Lymphs % (Man) 0 % 08/28/18 20:15 10.0 % (0.0-7.3) H 08/28/18 20:15 0 % (0.0-4.3) 08/28/18 20:15 0 % (0.0-1.8) 08/28/18 20:15 1.0 % 08/28/18 20:15 0 % 08/28/18 20:15 0 % 08/28/18 20:15 0 % 08/28/18 20:15 Nucleated RBC % Not Reportable 08/28/18 20:15 Seg Neutrophils # 10.6 K/mm3 (1.8-7.7) H 08/30/18 04:34 Seg Neutrophils # Man 13.7 K/mm3 (1.8-7.7) H 08/28/18 20:15 Band Neutrophils # 0.0 K/mm3 08/28/18 20:15 4.5 K/mm3 (1.2-5.4) 08/28/18 20:15 Abs React Lymphs (Man) 0.0 K/mm3 08/28/18 20:15 2.0 K/mm3 (0.0-0.8) H 08/28/18 20:15 0.0 K/mm3 (0.0-0.4) 08/28/18 20:15 0.0 K/mm3 (0.0-0.1) 08/28/18 20:15 0.2 K/mm3 08/28/18 20:15 0.0 K/mm3 08/28/18 20:15 0.0 K/mm3 08/28/18 20:15 Blast Cells # 0.0 K/mm3 08/28/18 20:15 WBC Morphology Not Reportable 08/28/18 20:15 Hypersegmented Neuts Few 08/28/18 20:15 Hyposegmented Neuts Not Reportable 08/28/18 20:15 Hypogranular Neuts Not Reportable 08/28/18 20:15 Not Reportable 08/28/18 20:15 Not Reportable 08/28/18 20:15 Not Reportable 08/28/18 20:15 Not Reportable 08/28/18 20:15 Not Reportable 08/28/18 20:15 Not Reportable 08/28/18 20:15 Consistent w auto 08/28/18 20:15 Not Reportable 08/28/18 20:15 Plt Clumps, EDTA Not Reportable 08/28/18 20:15 Not Reportable 08/28/18 20:15 Not Reportable 08/28/18 20:15 Not Reportable 08/28/18 20:15 Plt Morphology Comment Not Reportable 08/28/18 20:15 RBC Morphology Not Reportable 08/28/18 20:15 Dimorphic RBCs Not Reportable 08/28/18 20:15 Not Reportable 08/28/18 20:15 Not Reportable 08/28/18 20:15 Not Reportable 08/28/18 20:15 Few 08/28/18 20:15 Not Reportable 08/28/18 20:15 Not Reportable 08/28/18 20:15 Not Reportable 08/28/18 20:15 Not Reportable 08/28/18 20:15 Not Reportable 08/28/18 20:15 Not Reportable 08/28/18 20:15 Not Reportable 08/28/18 20:15 Not Reportable 08/28/18 20:15 Few 08/28/18 20:15 Not Reportable 08/28/18 20:15 Not Reportable 08/28/18 20:15 Not Reportable 08/28/18 20:15 Not Reportable 08/28/18 20:15 Not Reportable 08/28/18 20:15 Not Reportable 08/28/18 20:15 Not Reportable 08/28/18 20:15 Acanthocytes (Spur) Not Reportable 08/28/18 20:15 Rouleaux Not Reportable 08/28/18 20:15 Not Reportable 08/28/18 20:15 Not Reportable 08/28/18 20:15 Not Reportable 08/28/18 20:15 Not Reportable 08/28/18 20:15 Hem Pathologist Commnt No 08/28/18 20:15 Sodium 135 mmol/L (137-145) L 08/30/18 04:34 Potassium 4.6 mmol/L (3.6-5.0) 08/30/18 04:34 Chloride 98.6 mmol/L (98-107) 08/30/18 04:34 Carbon Dioxide 25 mmol/L (22-30) 08/30/18 04:34 16 mmol/L 08/30/18 04:34 BUN 6 mg/dL (7-17) L 08/30/18 04:34 0.6 mg/dL (0.7-1.2) L 08/30/18 04:34 Estimated GFR > 60 ml/min 08/30/18 04:34 10 % 08/30/18 04:34 Glucose 106 mg/dL (65-100) H 08/30/18 04:34 Lactic Acid 1.10 mmol/L (0.7-2.0) 08/28/18 22:30 Calcium 8.8 mg/dL (8.4-10.2) 08/30/18 04:34 0.60 mg/dL (0.1-1.2) 08/28/18 20:15 AST 17 units/L (5-40) 08/28/18 20:15 ALT 26 units/L (7-56) 08/28/18 20:15 87 units/L (35-129) 08/28/18 20:15 7.6 g/dL (6.3-8.2) 08/28/18 20:15 3.0 g/dL (3.9-5) L 08/28/18 20:15 0.7 % 08/28/18 20:15 HCG, Quant < 2 mIU/mL (0-4) 08/28/18 22:30 Yellow (Yellow) 08/29/18 01:10 Clear (Clear) 08/29/18 01:10 6.0 (5.0-7.0) 08/29/18 01:10 Ur Specific [place] 1.019 (1.003-1.030) 08/29/18 01:10 <15 mg/dl mg/dL (Negative) 08/29/18 01:10 Neg mg/dL (Negative) 08/29/18 01:10 Neg mg/dL (Negative) 08/29/18 01:10 Neg (Negative) 08/29/18 01:10 Neg (Negative) 08/29/18 01:10 Neg (Negative) 08/29/18 01:10 < 2.0 mg/dL (<2.0) 08/29/18 01:10 Ur Leukocyte Esterase Neg (Negative) 08/29/18 01:10 < 1.0 /HPF (0.0-6.0) 08/29/18 01:10 1.0 /HPF (0.0-6.0) 08/29/18 01:10 U Epithel Cells (Auto) 16.0 /HPF (0-13.0) H 08/29/18 01:10 Active Medications - Current Medications Current Medications: Generic Name Dose Route Start Last Admin Trade Name Freq PRN Reason Stop Dose Admin Acetaminophen 650 mg 08/29/18 03:21 08/29/18 20:59 Tylenol PO 650 mg Q4H PRN Administration Pain MILD(1-3)/Fever >100.5/SHIN Enoxaparin Sodium 40 mg 08/29/18 10:00 08/30/18 09:41 Lovenox SUB-Q 40 mg QDAY@1000 RYLEY Administration Piperacillin Sod/Tazobactam Sod 4.5 gm in 100 mls @ 200 mls/hr 08/29/18 03:20 08/30/18 05:42 Zosyn/Ns 4.5gm/100ml IV 200 mls/hr Q8HR RYLEY Administration Protocol Sodium Chloride 1,000 mls @ 150 mls/hr 08/29/18 04:00 08/30/18 09:47 Nacl 0.9% 1000 Ml IV 150 mls/hr DIRECT RYLEY Administration Methocarbamol 1,000 mg/ Sodium 260 mls @ 250 mls/hr 08/30/18 14:00 Chloride IV Q8HR RYLEY Methocarbamol 750 mg 08/29/18 01:00 08/30/18 05:36 Robaxin PO 750 mg Q8H PRN Administration Muscle Spasm Morphine Sulfate 2 mg 08/29/18 03:21 08/30/18 09:41 Morphine IV 2 mg Q4H PRN Administration Pain, Moderate (4-6) Ondansetron HCl 4 mg 08/29/18 03:21 08/29/18 06:36 Zofran IV 4 mg Q8H PRN Administration Nausea And Vomiting Sodium Chloride 10 ml 08/29/18 10:00 08/30/18 09:52 Sodium Chloride Flush Syringe 10 Ml IV 10 ml BID RYLEY Administration Sodium Chloride 10 ml 08/29/18 03:21 Sodium Chloride Flush Syringe 10 Ml IV PRN PRN LINE FLUSH
[2018-08-30] MEDS ORDERED: ROBAXIN 1,000 MG in NACL 0.9% 250ML 250 ML IV SCH (14:00)
[2018-08-30] MEDS ORDERED: ROBAXIN PO PRN (14:35)
[2018-08-30] MEDS: ROBAXIN PO SCH ×2 (15:36→23:31)
[2018-08-31] MEDS: MORPHINE IV PRN ×4 (02:18→22:28)
[2018-08-31] MEDS: ZOSYN/NS 4.5GM/100ML 4.5 GM/100 ML VIAL IV SCH (05:51)
[2018-08-31] MEDS: ROBAXIN PO SCH ×3 (05:51→22:14)
[2018-08-31] MEDS: NACL 0.9% 1000 ML 1,000 ML IV SCH ×2 (06:05→20:40)
--- NOTE | 2018-08-31 07:41 | Consultation ---
History of Present Illness - Reason for Consult Consult date: 08/31/18 Gluteal absces Requesting physician: STACEY CAROLINA - History of Present Illness HPI: 23-year-old female with PMH of PCOS, asthma, who presented to the ER on 08/28/18 c/o pain, tightness on her the left buttock and fever. She is status post [place] butt lift on 08/14/18. Four to five days after the procedure she noted that the left buttock felt tight, hot and painful and that it was not healing as fast as the right. She saw her plastic surgeon on 08/17 or 08/18/18 and she was told Left buttock looked ok on exam and she should monitor symptoms. She continued to have pain, tightness and went for another f/u around 08/21. On 08/23 she was seen once more and was told there was a mild infection and was prescribed bactrim, percocet and was recommended to monitor. That day she started spiking fever of 101-102. She was told to come to the ER for further evaluation. She presented to the ER on 08/28/18. In the ER T 99, pulse 117, RR 20, SO2 81%, BP 101/77. Labs showed leukocytosis of 20.4, H/H 8.7/25.9, PLTs 790. Lactic acid was 1.9. She had a pelvic CT that showed large complex int ramuscular abscess of Left gluteus guillermo. She was started on vancomycin and cefepime. She underwent CT guided drainage with a drain left in place on 08/29/17. 250 ml of purulent fluid obtained. Pt has been on Zosyn since 08/29/18. ID is consulted for further antibiotic management. Microbiology: -Blood cultures 08/28 NGTD -Surgical Wound cultures 08/29 NGTD Current Antimicrobials: Zosyn 08/29- Previous Antimicrobials: Cefazolin 08/29 Cefepime 08/28 Vancomycn 08/28 ROS Constitutional: no weight loss, chills. +fever Ears, eyes, nose, mouth and throat: no nasal congestion, no nasal discharge, no sinus pressure, no vision change, no red eye. Neck: No neck pain or rigidity. Cardiovascular: no palpitations, chest pain Respiratory: no cough, shortness of breath Gastrointestinal: no hematochezia, no abdominal pain Genitourinary: no frequency, no hematuria Musculoskeletal: no joint swelling. +Left gluteal pain, hot and swelling. Integumentary: no rash, no pruritis. Neurological: no parathesias, no focal weakness Endocrine: no cold or heat intolerance, no polyuria or polydipsia Hematologic/Lymphatic: no easy bruising, no easy bleeding, no gland swelling Allergic/Immunologic: no urticaria, no angioedema. Past History Past Medical History: other (ASthma, PCOS) Past Surgical History: Other ([place] butt lift) Social history: other (etoh socially). denies: smoking Medications and Allergies Allergies Allergy/AdvReac Type Severity Reaction Status Date / Time No Known Allergies Allergy Verified 08/12/18 18:13 Home Medications Medication Instructions Recorded Confirmed Last Taken Type Albuterol Sulfate [Ventolin Hfa] 1 puff IH Q6H PRN 08/12/18 08/29/18 08/14/18 05:45 History buPROPion SR [Wellbutrin Sr] 150 mg PO BID 08/12/18 08/29/18 08/14/18 04:45 History Active Meds: Active Medications Acetaminophen (Tylenol) 650 mg PO Q4H PRN PRN Reason: Pain MILD(1-3)/Fever >100.5/SHIN Last Admin: 08/29/18 20:59 Dose: 650 mg Documented by: Enoxaparin Sodium (Lovenox) 40 mg SUB-Q QDAY@1000 RYLEY Last Admin: 08/30/18 09:41 Dose: 40 mg Documented by: Piperacillin Sod/Tazobactam Sod (Zosyn/Ns 4.5gm/100ml) 4.5 gm in 100 mls @ 200 mls/hr IV Q8HR RYLEY; Protocol Last Admin: 08/31/18 05:51 Dose: 200 mls/hr Documented by: Sodium Chloride (Nacl 0.9% 1000 Ml) 1,000 mls @ 150 mls/hr IV DIRECT RYLEY Last Admin: 08/31/18 06:05 Dose: 150 mls/hr Documented by: Methocarbamol (Robaxin) 750 mg PO Q8HR RYLEY Last Admin: 08/31/18 05:51 Dose: 750 mg Documented by: Methocarbamol (Robaxin) 750 mg PO Q8H PRN PRN Reason: Muscle Spasm Morphine Sulfate (Morphine) 2 mg IV Q4H PRN PRN Reason: Pain, Moderate (4-6) Last Admin: 08/31/18 05:42 Dose: 2 mg Documented by: Ondansetron HCl (Zofran) 4 mg IV Q8H PRN PRN Reason: Nausea And Vomiting Last Admin: 08/29/18 06:36 Dose: 4 mg Documented by: Sodium Chloride (Sodium Chloride Flush Syringe 10 Ml) 10 ml IV BID RYLEY Last Admin: 08/30/18 22:07 Dose: 10 ml Documented by: Sodium Chloride (Sodium Chloride Flush Syringe 10 Ml) 10 ml IV PRN PRN PRN Reason: LINE FLUSH Physical Examination - Physical Exam Narrative exam: General appearance: Pt is awake, alert in NAD, conversant. Eyes: anicteric sclerae, moist conjunctivae; no lid-lag; PERRLA HENT: Atraumatic; oropharynx clear with moist mucous membranes and no mucosal ulcerations/no oral thrush; normal hard and soft palate. Normal external ears. Neck: Trachea midline; supple, no thyromegaly or lymphadenopathy. Lungs: CTA, with normal respiratory effort and no intercostal retractions. CV: RRR, no murmurs. Abdomen: Soft, non-tender; no masses or hepatosplenomegaly Gluteal: Left buttock with IR drain in place with purulent drainage noted in the bag. There is induration around drain and some erythema. +tender to palpation. +warm. Extremities: No peripheral edema or extremity lymphadenopathy Skin: Normal temperature, turgor and texture; no rash, ulcers or subcutaneous nodules Psych: Appropriate affect, alert and oriented to person, place and time. Neuro: alert and oriented x 3. Moving all extremities. Non-focal. Lines: No CVL / PICC - Constitutional Vitals: Vital Signs Temp Pulse Resp BP Pulse Ox 98.1 F 81 18 143/68 99 08/31/18 04:28 08/31/18 04:28 08/31/18 04:28 08/31/18 04:28 08/31/18 04:28 Temperature -Last 24 Hours Temperature 98.1 F Temperature 98.7 F Temperature 98.6 F Temperature 98 F Results - Labs CBC & Chem 7: 08/30/18 04:34 08/30/18 04:34 - Imaging and Cardiology CT scan - pelvis: report reviewed Assessment and Plan Assessment: 23 yo F PMH PCOS and asthma who is s/p [place] butt lift on 08/14/18 and was admitted on 08/28/18 with Left gluteal pain, fever. She was found to have a left gluteal abscess. 1) Sepsis: manifested by fever, tachycardia, leukocytosis. Due to left gluteal abscess. WBC trending down. Afebrile since 08/29/18. 2) Large multiloculated Left gluteal abscess after [place] butt lift on 08/14/18, s/p CT guided drainage by IR on 08/29/[address] 250 ml of purulent fluid obtained. Abscess culture and blood cultures no growth to date. 3) Thrombocytosis. Likely reactive. Improved. Plan: -Stop zosyn -Start unasyn and vancomycin. -Monitor CBC. -Monitor temperature. -Will f/u blood cx and abscess cx and adjust antibiotics accordingly. -d/w pt and pt's mother at bedside. -Further recommendations as case progresses. Thank you for your consultation, will follow up with you. Sheyla Jurado MD Infectious Diseases Specialist [facility] ([facility]) M [phone]
[2018-08-31] MEDS ORDERED: VANCOMYCIN PHARMACY TO DOSE IV SCH (10:00)
[2018-08-31] MEDS: LOVENOX SUB-Q SCH (11:16)
[2018-08-31] MEDS: UNASYN/NS 3 GM/100 ML 3 GM/100 ML BAG IV SCH ×2 (11:38→18:04)
[2018-08-31] MEDS: VANCOMYCIN/NS 1 GM/250 ML 1 GM/250 ML BAG IV SCH ×2 (12:20→20:42)
--- NOTE | 2018-08-31 12:48 | Progress Note ---
Assessment and Plan Assessment and plan: 23F with left buttock pain, swelling and abscess, sp recent fat transfer to her buttokcs Left buttock abscess sepsis Hyponatremia PCOS Asthma sp, drain by IR in place mgt per surgery cont abx sp IVF dvt ppx early ambulation History Interval history: continues to co r buttock pain Review of systems Constitutional: No fevers, no malaise, no joint pains CVS: No chest pain, no orthopnea, no pedal edema GI: No abdominal pain, no diarrhea, no vomiting, no constipation Respiratory: No shortness of breath, no wheezing, no coughing Hospitalist Physical - Physical exam Narrative exam: General.: Appears well, no distress, nontoxic HEENT: Moist mucous membranes, extraocular muscles intact, no lymphadenopathy Neck: supple Cardiac: S1-S2 heard Lungs: clear to auscultation bilaterally Abdomen: soft , nontender, nondistended, bowel sounds positive Extremities: no edema clubbing or cyanosis Skin: no rash or lesions Right buttock tenderness, drain in place Neurologic: no gross focal deficits Psych: calm, and cooperative - Constitutional Vitals: Temp Pulse Resp BP Pulse Ox 97.5 F L 69 18 99/62 97 08/31/18 11:25 08/31/18 11:25 08/31/18 11:25 08/31/18 11:25 08/31/18 11:25 General appearance: Present: no acute distress Results - Labs CBC & Chem 7: 08/30/18 04:34 08/30/18 04:34 Labs: Laboratory Last Values WBC 14.9 K/mm3 (4.5-11.0) H 08/30/18 04:34 RBC 2.61 M/mm3 (3.65-5.03) L 08/30/18 04:34 Hgb 7.6 gm/dl (10.1-14.3) L 08/30/18 04:34 Hct 22.6 % (30.3-42.9) L 08/30/18 04:34 MCV 87 fl (79-97) 08/30/18 04:34 MCH 29 pg (28-32) 08/30/18 04:34 MCHC 34 % (30-34) 08/30/18 04:34 RDW 14.3 % (13.2-15.2) 08/30/18 04:34 Plt Count 698 K/mm3 (140-440) H 08/30/18 04:34 Lymph % (Auto) 18.1 % (13.4-35.0) 08/30/18 04:34 [place] % (Auto) 10.2 % (0.0-7.3) H 08/30/18 04:34 Eos % (Auto) 0.4 % (0.0-4.3) 08/30/18 04:34 Baso % (Auto) 0.1 % (0.0-1.8) 08/30/18 04:34 Lymph # 2.7 K/mm3 (1.2-5.4) 08/30/18 04:34 [place] # 1.5 K/mm3 (0.0-0.8) H 08/30/18 04:34 Eos # 0.1 K/mm3 (0.0-0.4) 08/30/18 04:34 Baso # 0.0 K/mm3 (0.0-0.1) 08/30/18 04:34 Add Manual Diff Complete 08/28/18 20:15 Total Counted 100 08/28/18 20:15 Seg Neutrophils % 71.2 % (40.0-70.0) H 08/30/18 04:34 Seg Neuts % (Manual) 67.0 % (40.0-70.0) 08/28/18 20:15 0 % 08/28/18 20:15 22.0 % (13.4-35.0) 08/28/18 20:15 Reactive Lymphs % (Man) 0 % 08/28/18 20:15 10.0 % (0.0-7.3) H 08/28/18 20:15 0 % (0.0-4.3) 08/28/18 20:15 0 % (0.0-1.8) 08/28/18 20:15 1.0 % 08/28/18 20:15 0 % 08/28/18 20:15 0 % 08/28/18 20:15 0 % 08/28/18 20:15 Nucleated RBC % Not Reportable 08/28/18 20:15 Seg Neutrophils # 10.6 K/mm3 (1.8-7.7) H 08/30/18 04:34 Seg Neutrophils # Man 13.7 K/mm3 (1.8-7.7) H 08/28/18 20:15 Band Neutrophils # 0.0 K/mm3 08/28/18 20:15 4.5 K/mm3 (1.2-5.4) 08/28/18 20:15 Abs React Lymphs (Man) 0.0 K/mm3 08/28/18 20:15 2.0 K/mm3 (0.0-0.8) H 08/28/18 20:15 0.0 K/mm3 (0.0-0.4) 08/28/18 20:15 0.0 K/mm3 (0.0-0.1) 08/28/18 20:15 0.2 K/mm3 08/28/18 20:15 0.0 K/mm3 08/28/18 20:15 0.0 K/mm3 08/28/18 20:15 Blast Cells # 0.0 K/mm3 08/28/18 20:15 WBC Morphology Not Reportable 08/28/18 20:15 Hypersegmented Neuts Few 08/28/18 20:15 Hyposegmented Neuts Not Reportable 08/28/18 20:15 Hypogranular Neuts Not Reportable 08/28/18 20:15 Not Reportable 08/28/18 20:15 Not Reportable 08/28/18 20:15 Not Reportable 08/28/18 20:15 Not Reportable 08/28/18 20:15 Not Reportable 08/28/18 20:15 Not Reportable 08/28/18 20:15 Consistent w auto 08/28/18 20:15 Not Reportable 08/28/18 20:15 Plt Clumps, EDTA Not Reportable 08/28/18 20:15 Not Reportable 08/28/18 20:15 Not Reportable 08/28/18 20:15 Not Reportable 08/28/18 20:15 Plt Morphology Comment Not Reportable 08/28/18 20:15 RBC Morphology Not Reportable 08/28/18 20:15 Dimorphic RBCs Not Reportable 08/28/18 20:15 Not Reportable 08/28/18 20:15 Not Reportable 08/28/18 20:15 Not Reportable 08/28/18 20:15 Few 08/28/18 20:15 Not Reportable 08/28/18 20:15 Not Reportable 08/28/18 20:15 Not Reportable 08/28/18 20:15 Not Reportable 08/28/18 20:15 Not Reportable 08/28/18 20:15 Not Reportable 08/28/18 20:15 Not Reportable 08/28/18 20:15 Not Reportable 08/28/18 20:15 Few 08/28/18 20:15 Not Reportable 08/28/18 20:15 Not Reportable 08/28/18 20:15 Not Reportable 08/28/18 20:15 Not Reportable 08/28/18 20:15 Not Reportable 08/28/18 20:15 Not Reportable 08/28/18 20:15 Not Reportable 08/28/18 20:15 Acanthocytes (Spur) Not Reportable 08/28/18 20:15 Rouleaux Not Reportable 08/28/18 20:15 Not Reportable 08/28/18 20:15 Not Reportable 08/28/18 20:15 Not Reportable 08/28/18 20:15 Not Reportable 08/28/18 20:15 Hem Pathologist Commnt No 08/28/18 20:15 Sodium 135 mmol/L (137-145) L 08/30/18 04:34 Potassium 4.6 mmol/L (3.6-5.0) 08/30/18 04:34 Chloride 98.6 mmol/L (98-107) 08/30/18 04:34 Carbon Dioxide 25 mmol/L (22-30) 08/30/18 04:34 16 mmol/L 08/30/18 04:34 BUN 6 mg/dL (7-17) L 08/30/18 04:34 0.6 mg/dL (0.7-1.2) L 08/30/18 04:34 Estimated GFR > 60 ml/min 08/30/18 04:34 10 % 08/30/18 04:34 Glucose 106 mg/dL (65-100) H 08/30/18 04:34 Lactic Acid 1.10 mmol/L (0.7-2.0) 08/28/18 22:30 Calcium 8.8 mg/dL (8.4-10.2) 08/30/18 04:34 0.60 mg/dL (0.1-1.2) 08/28/18 20:15 AST 17 units/L (5-40) 08/28/18 20:15 ALT 26 units/L (7-56) 08/28/18 20:15 87 units/L (35-129) 08/28/18 20:15 7.6 g/dL (6.3-8.2) 08/28/18 20:15 3.0 g/dL (3.9-5) L 08/28/18 20:15 0.7 % 08/28/18 20:15 HCG, Quant < 2 mIU/mL (0-4) 08/28/18 22:30 Yellow (Yellow) 08/29/18 01:10 Clear (Clear) 08/29/18 01:10 6.0 (5.0-7.0) 08/29/18 01:10 Ur Specific [place] 1.019 (1.003-1.030) 08/29/18 01:10 <15 mg/dl mg/dL (Negative) 08/29/18 01:10 Neg mg/dL (Negative) 08/29/18 01:10 Neg mg/dL (Negative) 08/29/18 01:10 Neg (Negative) 08/29/18 01:10 Neg (Negative) 08/29/18 01:10 Neg (Negative) 08/29/18 01:10 < 2.0 mg/dL (<2.0) 08/29/18 01:10 Ur Leukocyte Esterase Neg (Negative) 08/29/18 01:10 < 1.0 /HPF (0.0-6.0) 08/29/18 01:10 1.0 /HPF (0.0-6.0) 08/29/18 01:10 U Epithel Cells (Auto) 16.0 /HPF (0-13.0) H 08/29/18 01:10 Active Medications - Current Medications Current Medications: Generic Name Dose Route Start Last Admin Trade Name Freq PRN Reason Stop Dose Admin Acetaminophen 650 mg 08/29/18 03:21 08/29/18 20:59 Tylenol PO 650 mg Q4H PRN Administration Pain MILD(1-3)/Fever >100.5/SHIN Enoxaparin Sodium 40 mg 08/29/18 10:00 08/31/18 11:16 Lovenox SUB-Q 40 mg QDAY@1000 RYLEY Administration Sodium Chloride 1,000 mls @ 150 mls/hr 08/29/18 04:00 08/31/18 06:05 Nacl 0.9% 1000 Ml IV 150 mls/hr DIRECT RYLEY Administration Ampicillin Sodium/Sulbactam Sodium 3 gm in 100 mls @ 200 mls/hr 08/31/18 12:00 08/31/18 11:38 Unasyn/Ns 3 Gm/100 Ml IV 200 mls/hr Q6HR RYLEY Administration Protocol Vancomycin HCl 1 gm in 250 mls @ 166.667 mls/hr 08/31/18 11:00 Vancomycin/Ns 1 Gm/250 Ml IV Q8H RYLEY Methocarbamol 750 mg 08/30/18 15:00 08/31/18 05:51 Robaxin PO 750 mg Q8HR RYLEY Administration Methocarbamol 750 mg 08/30/18 14:35 Robaxin PO Q8H PRN Muscle Spasm Morphine Sulfate 2 mg 08/29/18 03:21 08/31/18 05:42 Morphine IV 2 mg Q4H PRN Administration Pain, Moderate (4-6) Ondansetron HCl 4 mg 08/29/18 03:21 08/29/18 06:36 Zofran IV 4 mg Q8H PRN Administration Nausea And Vomiting Sodium Chloride 10 ml 08/29/18 10:00 08/30/18 22:07 Sodium Chloride Flush Syringe 10 Ml IV 10 ml BID RYLEY Administration Sodium Chloride 10 ml 08/29/18 03:21 Sodium Chloride Flush Syringe 10 Ml IV PRN PRN LINE FLUSH
[2018-08-31] MEDS: SODIUM CHLORIDE FLUSH SYRINGE 10 ML IV SCH (22:34)
[2018-09-01] MEDS: UNASYN/NS 3 GM/100 ML 3 GM/100 ML BAG IV SCH ×4 (01:03→18:19)
[2018-09-01] MEDS: MORPHINE IV PRN ×3 (02:38→20:19)
[2018-09-01] MEDS: VANCOMYCIN/NS 1 GM/250 ML 1 GM/250 ML BAG IV SCH ×3 (03:32→22:55)
[2018-09-01] MEDS: ROBAXIN PO SCH ×3 (06:47→22:46)
[2018-09-01] MEDS: LOVENOX SUB-Q SCH (11:02)
[2018-09-01] MEDS: SODIUM CHLORIDE FLUSH SYRINGE 10 ML IV SCH ×2 (11:03→22:57)
--- NOTE | 2018-09-01 14:09 | Progress Note ---
Assessment and Plan Assessment and plan: 23F with left buttock pain, swelling and abscess, sp recent fat transfer to her buttokcs Left buttock abscess sepsis Hyponatremia PCOS Asthma sp, drain by IR in place mgt per surgery cont abx sp IVF dvt ppx early ambulation History Interval history: continues to co r buttock pain, but is is improved output from buttock drain is minimal/scant Review of systems Constitutional: No fevers, no malaise, no joint pains CVS: No chest pain, no orthopnea, no pedal edema GI: No abdominal pain, no diarrhea, no vomiting, no constipation Respiratory: No shortness of breath, no wheezing, no coughing Hospitalist Physical - Physical exam Narrative exam: General.: Appears well, no distress, nontoxic HEENT: Moist mucous membranes, extraocular muscles intact, no lymphadenopathy Neck: supple Cardiac: S1-S2 heard Lungs: clear to auscultation bilaterally Abdomen: soft , nontender, nondistended, bowel sounds positive Extremities: no edema clubbing or cyanosis Skin: no rash or lesions Right buttock tenderness, drain in place with surrounding induration Neurologic: no gross focal deficits Psych: calm, and cooperative - Constitutional Vitals: Temp Pulse Resp BP Pulse Ox 97.9 F 74 18 122/70 99 09/01/18 11:43 09/01/18 11:44 09/01/18 11:43 09/01/18 11:43 09/01/18 11:44 General appearance: Present: no acute distress Results - Labs CBC & Chem 7: 08/30/18 04:34 08/30/18 04:34 Labs: Laboratory Last Values WBC 14.9 K/mm3 (4.5-11.0) H 08/30/18 04:34 RBC 2.61 M/mm3 (3.65-5.03) L 08/30/18 04:34 Hgb 7.6 gm/dl (10.1-14.3) L 08/30/18 04:34 Hct 22.6 % (30.3-42.9) L 08/30/18 04:34 MCV 87 fl (79-97) 08/30/18 04:34 MCH 29 pg (28-32) 08/30/18 04:34 MCHC 34 % (30-34) 08/30/18 04:34 RDW 14.3 % (13.2-15.2) 08/30/18 04:34 Plt Count 698 K/mm3 (140-440) H 08/30/18 04:34 Lymph % (Auto) 18.1 % (13.4-35.0) 08/30/18 04:34 [place] % (Auto) 10.2 % (0.0-7.3) H 08/30/18 04:34 Eos % (Auto) 0.4 % (0.0-4.3) 08/30/18 04:34 Baso % (Auto) 0.1 % (0.0-1.8) 08/30/18 04:34 Lymph # 2.7 K/mm3 (1.2-5.4) 08/30/18 04:34 [place] # 1.5 K/mm3 (0.0-0.8) H 08/30/18 04:34 Eos # 0.1 K/mm3 (0.0-0.4) 08/30/18 04:34 Baso # 0.0 K/mm3 (0.0-0.1) 08/30/18 04:34 Add Manual Diff Complete 08/28/18 20:15 Total Counted 100 08/28/18 20:15 Seg Neutrophils % 71.2 % (40.0-70.0) H 08/30/18 04:34 Seg Neuts % (Manual) 67.0 % (40.0-70.0) 08/28/18 20:15 0 % 08/28/18 20:15 22.0 % (13.4-35.0) 08/28/18 20:15 Reactive Lymphs % (Man) 0 % 08/28/18 20:15 10.0 % (0.0-7.3) H 08/28/18 20:15 0 % (0.0-4.3) 08/28/18 20:15 0 % (0.0-1.8) 08/28/18 20:15 1.0 % 08/28/18 20:15 0 % 08/28/18 20:15 0 % 08/28/18 20:15 0 % 08/28/18 20:15 Nucleated RBC % Not Reportable 08/28/18 20:15 Seg Neutrophils # 10.6 K/mm3 (1.8-7.7) H 08/30/18 04:34 Seg Neutrophils # Man 13.7 K/mm3 (1.8-7.7) H 08/28/18 20:15 Band Neutrophils # 0.0 K/mm3 08/28/18 20:15 4.5 K/mm3 (1.2-5.4) 08/28/18 20:15 Abs React Lymphs (Man) 0.0 K/mm3 08/28/18 20:15 2.0 K/mm3 (0.0-0.8) H 08/28/18 20:15 0.0 K/mm3 (0.0-0.4) 08/28/18 20:15 0.0 K/mm3 (0.0-0.1) 08/28/18 20:15 0.2 K/mm3 08/28/18 20:15 0.0 K/mm3 08/28/18 20:15 0.0 K/mm3 08/28/18 20:15 Blast Cells # 0.0 K/mm3 08/28/18 20:15 WBC Morphology Not Reportable 08/28/18 20:15 Hypersegmented Neuts Few 08/28/18 20:15 Hyposegmented Neuts Not Reportable 08/28/18 20:15 Hypogranular Neuts Not Reportable 08/28/18 20:15 Not Reportable 08/28/18 20:15 Not Reportable 08/28/18 20:15 Not Reportable 08/28/18 20:15 Not Reportable 08/28/18 20:15 Not Reportable 08/28/18 20:15 Not Reportable 08/28/18 20:15 Consistent w auto 08/28/18 20:15 Not Reportable 08/28/18 20:15 Plt Clumps, EDTA Not Reportable 08/28/18 20:15 Not Reportable 08/28/18 20:15 Not Reportable 08/28/18 20:15 Not Reportable 08/28/18 20:15 Plt Morphology Comment Not Reportable 08/28/18 20:15 RBC Morphology Not Reportable 08/28/18 20:15 Dimorphic RBCs Not Reportable 08/28/18 20:15 Not Reportable 08/28/18 20:15 Not Reportable 08/28/18 20:15 Not Reportable 08/28/18 20:15 Few 08/28/18 20:15 Not Reportable 08/28/18 20:15 Not Reportable 08/28/18 20:15 Not Reportable 08/28/18 20:15 Not Reportable 08/28/18 20:15 Not Reportable 08/28/18 20:15 Not Reportable 08/28/18 20:15 Not Reportable 08/28/18 20:15 Not Reportable 08/28/18 20:15 Few 08/28/18 20:15 Not Reportable 08/28/18 20:15 Not Reportable 08/28/18 20:15 Not Reportable 08/28/18 20:15 Not Reportable 08/28/18 20:15 Not Reportable 08/28/18 20:15 Not Reportable 08/28/18 20:15 Not Reportable 08/28/18 20:15 Acanthocytes (Spur) Not Reportable 08/28/18 20:15 Rouleaux Not Reportable 08/28/18 20:15 Not Reportable 08/28/18 20:15 Not Reportable 08/28/18 20:15 Not Reportable 08/28/18 20:15 Not Reportable 08/28/18 20:15 Hem Pathologist Commnt No 08/28/18 20:15 Sodium 135 mmol/L (137-145) L 08/30/18 04:34 Potassium 4.6 mmol/L (3.6-5.0) 08/30/18 04:34 Chloride 98.6 mmol/L (98-107) 08/30/18 04:34 Carbon Dioxide 25 mmol/L (22-30) 08/30/18 04:34 16 mmol/L 08/30/18 04:34 BUN 6 mg/dL (7-17) L 08/30/18 04:34 0.6 mg/dL (0.7-1.2) L 08/30/18 04:34 Estimated GFR > 60 ml/min 08/30/18 04:34 10 % 08/30/18 04:34 Glucose 106 mg/dL (65-100) H 08/30/18 04:34 Lactic Acid 1.10 mmol/L (0.7-2.0) 08/28/18 22:30 Calcium 8.8 mg/dL (8.4-10.2) 08/30/18 04:34 0.60 mg/dL (0.1-1.2) 08/28/18 20:15 AST 17 units/L (5-40) 08/28/18 20:15 ALT 26 units/L (7-56) 08/28/18 20:15 87 units/L (35-129) 08/28/18 20:15 7.6 g/dL (6.3-8.2) 08/28/18 20:15 3.0 g/dL (3.9-5) L 08/28/18 20:15 0.7 % 08/28/18 20:15 HCG, Quant < 2 mIU/mL (0-4) 08/28/18 22:30 Yellow (Yellow) 08/29/18 01:10 Clear (Clear) 08/29/18 01:10 6.0 (5.0-7.0) 08/29/18 01:10 Ur Specific [place] 1.019 (1.003-1.030) 08/29/18 01:10 <15 mg/dl mg/dL (Negative) 08/29/18 01:10 Neg mg/dL (Negative) 08/29/18 01:10 Neg mg/dL (Negative) 08/29/18 01:10 Neg (Negative) 08/29/18 01:10 Neg (Negative) 08/29/18 01:10 Neg (Negative) 08/29/18 01:10 < 2.0 mg/dL (<2.0) 08/29/18 01:10 Ur Leukocyte Esterase Neg (Negative) 08/29/18 01:10 < 1.0 /HPF (0.0-6.0) 08/29/18 01:10 1.0 /HPF (0.0-6.0) 08/29/18 01:10 U Epithel Cells (Auto) 16.0 /HPF (0-13.0) H 08/29/18 01:10 Active Medications - Current Medications Current Medications: Generic Name Dose Route Start Last Admin Trade Name Freq PRN Reason Stop Dose Admin Acetaminophen 650 mg 08/29/18 03:21 08/29/18 20:59 Tylenol PO 650 mg Q4H PRN Administration Pain MILD(1-3)/Fever >100.5/SHIN Enoxaparin Sodium 40 mg 08/29/18 10:00 09/01/18 11:02 Lovenox SUB-Q 40 mg QDAY@1000 RYLEY Administration Sodium Chloride 1,000 mls @ 150 mls/hr 08/29/18 04:00 08/31/18 20:40 Nacl 0.9% 1000 Ml IV 150 mls/hr DIRECT RYLEY Administration Ampicillin Sodium/Sulbactam Sodium 3 gm in 100 mls @ 200 mls/hr 08/31/18 12:00 09/01/18 06:47 Unasyn/Ns 3 Gm/100 Ml IV 200 mls/hr Q6HR RYLEY Administration Protocol Vancomycin HCl 1 gm in 250 mls @ 166.667 mls/hr 08/31/18 11:00 09/01/18 11:04 Vancomycin/Ns 1 Gm/250 Ml IV 166.667 mls/hr Q8H RYLEY Administration Methocarbamol 750 mg 08/30/18 15:00 09/01/18 06:47 Robaxin PO 750 mg Q8HR RYLEY Administration Methocarbamol 750 mg 08/30/18 14:35 Robaxin PO Q8H PRN Muscle Spasm Morphine Sulfate 2 mg 08/29/18 03:21 09/01/18 07:55 Morphine IV 2 mg Q4H PRN Administration Pain, Moderate (4-6) Ondansetron HCl 4 mg 08/29/18 03:21 08/29/18 06:36 Zofran IV 4 mg Q8H PRN Administration Nausea And Vomiting Sodium Chloride 10 ml 08/29/18 10:00 09/01/18 11:03 Sodium Chloride Flush Syringe 10 Ml IV 10 ml BID RYLEY Administration Sodium Chloride 10 ml 08/29/18 03:21 Sodium Chloride Flush Syringe 10 Ml IV PRN PRN LINE FLUSH
[2018-09-02] MEDS: MORPHINE IV PRN ×3 (00:34→19:08)
[2018-09-02] MEDS: UNASYN/NS 3 GM/100 ML 3 GM/100 ML BAG IV SCH ×4 (00:37→17:55)
[2018-09-02] MEDS: VANCOMYCIN/NS 1 GM/250 ML 1 GM/250 ML BAG IV SCH ×3 (02:06→19:52)
[2018-09-02] MEDS: ROBAXIN PO SCH ×3 (06:30→22:28)
--- NOTE | 2018-09-02 07:55 | Progress Note ---
Assessment and Plan Assessment and plan: 23F with left buttock pain, swelling and abscess, sp recent fat transfer to her buttokcs Left buttock abscess sepsis Hyponatremia PCOS Asthma sp, drain by IR in place mgt per surgery, surgical cx, ngtd cont abx sp IVF dvt ppx early ambulation History Interval history: continues to co r buttock pain, but is is improved output from buttock drain is minimal/scant Review of systems Constitutional: No fevers, no malaise, no joint pains CVS: No chest pain, no orthopnea, no pedal edema GI: No abdominal pain, no diarrhea, no vomiting, no constipation Respiratory: No shortness of breath, no wheezing, no coughing Hospitalist Physical - Physical exam Narrative exam: General.: Appears well, no distress, nontoxic HEENT: Moist mucous membranes, extraocular muscles intact, no lymphadenopathy Neck: supple Cardiac: S1-S2 heard Lungs: clear to auscultation bilaterally Abdomen: soft , nontender, nondistended, bowel sounds positive Extremities: no edema clubbing or cyanosis Skin: no rash or lesions Right buttock tenderness, drain in place with surrounding induration Neurologic: no gross focal deficits Psych: calm, and cooperative - Constitutional Vitals: Temp Pulse Resp BP Pulse Ox 97.9 F 64 16 106/60 98 09/02/18 07:05 09/02/18 07:05 09/02/18 07:05 09/02/18 07:05 09/02/18 07:05 General appearance: Present: no acute distress Results - Labs CBC & Chem 7: 09/02/18 11:33 08/30/18 04:34 Labs: Laboratory Last Values WBC 14.9 K/mm3 (4.5-11.0) H 08/30/18 04:34 RBC 2.61 M/mm3 (3.65-5.03) L 08/30/18 04:34 Hgb 7.6 gm/dl (10.1-14.3) L 08/30/18 04:34 Hct 22.6 % (30.3-42.9) L 08/30/18 04:34 MCV 87 fl (79-97) 08/30/18 04:34 MCH 29 pg (28-32) 08/30/18 04:34 MCHC 34 % (30-34) 08/30/18 04:34 RDW 14.3 % (13.2-15.2) 08/30/18 04:34 Plt Count 698 K/mm3 (140-440) H 08/30/18 04:34 Lymph % (Auto) 18.1 % (13.4-35.0) 08/30/18 04:34 [place] % (Auto) 10.2 % (0.0-7.3) H 08/30/18 04:34 Eos % (Auto) 0.4 % (0.0-4.3) 08/30/18 04:34 Baso % (Auto) 0.1 % (0.0-1.8) 08/30/18 04:34 Lymph # 2.7 K/mm3 (1.2-5.4) 08/30/18 04:34 [place] # 1.5 K/mm3 (0.0-0.8) H 08/30/18 04:34 Eos # 0.1 K/mm3 (0.0-0.4) 08/30/18 04:34 Baso # 0.0 K/mm3 (0.0-0.1) 08/30/18 04:34 Add Manual Diff Complete 08/28/18 20:15 Total Counted 100 08/28/18 20:15 Seg Neutrophils % 71.2 % (40.0-70.0) H 08/30/18 04:34 Seg Neuts % (Manual) 67.0 % (40.0-70.0) 08/28/18 20:15 0 % 08/28/18 20:15 22.0 % (13.4-35.0) 08/28/18 20:15 Reactive Lymphs % (Man) 0 % 08/28/18 20:15 10.0 % (0.0-7.3) H 08/28/18 20:15 0 % (0.0-4.3) 08/28/18 20:15 0 % (0.0-1.8) 08/28/18 20:15 1.0 % 08/28/18 20:15 0 % 08/28/18 20:15 0 % 08/28/18 20:15 0 % 08/28/18 20:15 Nucleated RBC % Not Reportable 08/28/18 20:15 Seg Neutrophils # 10.6 K/mm3 (1.8-7.7) H 08/30/18 04:34 Seg Neutrophils # Man 13.7 K/mm3 (1.8-7.7) H 08/28/18 20:15 Band Neutrophils # 0.0 K/mm3 08/28/18 20:15 4.5 K/mm3 (1.2-5.4) 08/28/18 20:15 Abs React Lymphs (Man) 0.0 K/mm3 08/28/18 20:15 2.0 K/mm3 (0.0-0.8) H 08/28/18 20:15 0.0 K/mm3 (0.0-0.4) 08/28/18 20:15 0.0 K/mm3 (0.0-0.1) 08/28/18 20:15 0.2 K/mm3 08/28/18 20:15 0.0 K/mm3 08/28/18 20:15 0.0 K/mm3 08/28/18 20:15 Blast Cells # 0.0 K/mm3 08/28/18 20:15 WBC Morphology Not Reportable 08/28/18 20:15 Hypersegmented Neuts Few 08/28/18 20:15 Hyposegmented Neuts Not Reportable 08/28/18 20:15 Hypogranular Neuts Not Reportable 08/28/18 20:15 Not Reportable 08/28/18 20:15 Not Reportable 08/28/18 20:15 Not Reportable 08/28/18 20:15 Not Reportable 08/28/18 20:15 Not Reportable 08/28/18 20:15 Not Reportable 08/28/18 20:15 Consistent w auto 08/28/18 20:15 Not Reportable 08/28/18 20:15 Plt Clumps, EDTA Not Reportable 08/28/18 20:15 Not Reportable 08/28/18 20:15 Not Reportable 08/28/18 20:15 Not Reportable 08/28/18 20:15 Plt Morphology Comment Not Reportable 08/28/18 20:15 RBC Morphology Not Reportable 08/28/18 20:15 Dimorphic RBCs Not Reportable 08/28/18 20:15 Not Reportable 08/28/18 20:15 Not Reportable 08/28/18 20:15 Not Reportable 08/28/18 20:15 Few 08/28/18 20:15 Not Reportable 08/28/18 20:15 Not Reportable 08/28/18 20:15 Not Reportable 08/28/18 20:15 Not Reportable 08/28/18 20:15 Not Reportable 08/28/18 20:15 Not Reportable 08/28/18 20:15 Not Reportable 08/28/18 20:15 Not Reportable 08/28/18 20:15 Few 08/28/18 20:15 Not Reportable 08/28/18 20:15 Not Reportable 08/28/18 20:15 Not Reportable 08/28/18 20:15 Not Reportable 08/28/18 20:15 Not Reportable 08/28/18 20:15 Not Reportable 08/28/18 20:15 Not Reportable 08/28/18 20:15 Acanthocytes (Spur) Not Reportable 08/28/18 20:15 Rouleaux Not Reportable 08/28/18 20:15 Not Reportable 08/28/18 20:15 Not Reportable 08/28/18 20:15 Not Reportable 08/28/18 20:15 Not Reportable 08/28/18 20:15 Hem Pathologist Commnt No 08/28/18 20:15 Sodium 135 mmol/L (137-145) L 08/30/18 04:34 Potassium 4.6 mmol/L (3.6-5.0) 08/30/18 04:34 Chloride 98.6 mmol/L (98-107) 08/30/18 04:34 Carbon Dioxide 25 mmol/L (22-30) 08/30/18 04:34 16 mmol/L 08/30/18 04:34 BUN 6 mg/dL (7-17) L 08/30/18 04:34 0.6 mg/dL (0.7-1.2) L 08/30/18 04:34 Estimated GFR > 60 ml/min 08/30/18 04:34 10 % 08/30/18 04:34 Glucose 106 mg/dL (65-100) H 08/30/18 04:34 Lactic Acid 1.10 mmol/L (0.7-2.0) 08/28/18 22:30 Calcium 8.8 mg/dL (8.4-10.2) 08/30/18 04:34 0.60 mg/dL (0.1-1.2) 08/28/18 20:15 AST 17 units/L (5-40) 08/28/18 20:15 ALT 26 units/L (7-56) 08/28/18 20:15 87 units/L (35-129) 08/28/18 20:15 7.6 g/dL (6.3-8.2) 08/28/18 20:15 3.0 g/dL (3.9-5) L 08/28/18 20:15 0.7 % 08/28/18 20:15 HCG, Quant < 2 mIU/mL (0-4) 08/28/18 22:30 Yellow (Yellow) 08/29/18 01:10 Clear (Clear) 08/29/18 01:10 6.0 (5.0-7.0) 08/29/18 01:10 Ur Specific [place] 1.019 (1.003-1.030) 08/29/18 01:10 <15 mg/dl mg/dL (Negative) 08/29/18 01:10 Neg mg/dL (Negative) 08/29/18 01:10 Neg mg/dL (Negative) 08/29/18 01:10 Neg (Negative) 08/29/18 01:10 Neg (Negative) 08/29/18 01:10 Neg (Negative) 08/29/18 01:10 < 2.0 mg/dL (<2.0) 08/29/18 01:10 Ur Leukocyte Esterase Neg (Negative) 08/29/18 01:10 < 1.0 /HPF (0.0-6.0) 08/29/18 01:10 1.0 /HPF (0.0-6.0) 08/29/18 01:10 U Epithel Cells (Auto) 16.0 /HPF (0-13.0) H 08/29/18 01:10 Active Medications - Current Medications Current Medications: Generic Name Dose Route Start Last Admin Trade Name Freq PRN Reason Stop Dose Admin Acetaminophen 650 mg 08/29/18 03:21 08/29/18 20:59 Tylenol PO 650 mg Q4H PRN Administration Pain MILD(1-3)/Fever >100.5/SHIN Enoxaparin Sodium 40 mg 08/29/18 10:00 09/01/18 11:02 Lovenox SUB-Q 40 mg QDAY@1000 RYLEY Administration Sodium Chloride 1,000 mls @ 150 mls/hr 08/29/18 04:00 08/31/18 20:40 Nacl 0.9% 1000 Ml IV 150 mls/hr DIRECT RYLEY Administration Ampicillin Sodium/Sulbactam Sodium 3 gm in 100 mls @ 200 mls/hr 08/31/18 12:00 09/02/18 06:30 Unasyn/Ns 3 Gm/100 Ml IV 200 mls/hr Q6HR RYLEY Administration Protocol Vancomycin HCl 1 gm in 250 mls @ 166.667 mls/hr 08/31/18 11:00 09/02/18 02:06 Vancomycin/Ns 1 Gm/250 Ml IV 166.667 mls/hr Q8H RYLEY Administration Methocarbamol 750 mg 08/30/18 15:00 09/02/18 06:30 Robaxin PO 750 mg Q8HR RYLEY Administration Methocarbamol 750 mg 08/30/18 14:35 Robaxin PO Q8H PRN Muscle Spasm Morphine Sulfate 2 mg 08/29/18 03:21 09/02/18 05:04 Morphine IV 2 mg Q4H PRN Administration Pain, Moderate (4-6) Ondansetron HCl 4 mg 08/29/18 03:21 08/29/18 06:36 Zofran IV 4 mg Q8H PRN Administration Nausea And Vomiting Sodium Chloride 10 ml 08/29/18 10:00 09/01/18 22:57 Sodium Chloride Flush Syringe 10 Ml IV 10 ml BID RYLEY Administration Sodium Chloride 10 ml 08/29/18 03:21 Sodium Chloride Flush Syringe 10 Ml IV PRN PRN LINE FLUSH
[2018-09-02] MEDS: NACL 0.9% 1000 ML 1,000 ML IV SCH (08:39)
--- NOTE | 2018-09-02 10:05 | Progress Note ---
Assessment and Plan Cultures: 08/28/18 Blood: no growth to date 08/29/18 Surgical: no growth to date Assessment: 23 yo F PMH PCOS and asthma who is s/p [place] butt lift on 08/14/18 and was admitted on 08/28/18 with Left gluteal pain, fever. She was found to have a left gluteal abscess. 1) Sepsis: Improved. Leukocytosis trending down. Due to left gluteal abscess. Afebrile since 08/29/18. 2) Large multiloculated Left gluteal abscess after [place] butt lift on 08/14/18, s/p CT guided drainage by IR on 08/29/[address] 250 ml of purulent fluid obtained. Abscess culture and blood cultures no growth to date. 3) Thrombocytosis. Likely reactive. Improved. Plan: -continue unasyn and vancomycin, D3 -Will f/u blood cx and abscess cx -Continue to monitor fever and WBC -If improvement continues will switch to Augmentin 875 mg PO every 12 hours and Doxycycline 100 mg PO every12 hours for total 10 days since drainage until 09-07-18. Imelda Kothari NP [facility] M: [phone] O:[phone] Subjective Date of service: 09/02/18 Principal diagnosis: Left gluteal abscess Interval history: Patient seen and examined. Reports continued tenderness but improved left buttock pain. No fevers. Objective - Exam Narrative Exam: General appearance: Pt is awake, alert in NAD, conversant. Eyes: anicteric sclerae, moist conjunctivae; no lid-lag; PERRLA HENT: Atraumatic; oropharynx clear with moist mucous membranes and no mucosal ulcerations/no oral thrush; normal hard and soft palate. Normal external ears. Neck: Trachea midline; supple, no thyromegaly or lymphadenopathy. Lungs: CTA, with normal respiratory effort and no intercostal retractions. CV: RRR, no murmurs. Abdomen: Soft, non-tender; no masses or hepatosplenomegaly Gluteal: Left buttock with IR drain in place with minimal purulent drainage noted in the bag. There is induration around drain and some erythema. +tender to palpation. +warm. Extremities: No peripheral edema or extremity lymphadenopathy Skin: Normal temperature, turgor and texture; no rash, ulcers or subcutaneous nodules Psych: Appropriate affect, alert and oriented to person, place and time. Neuro: alert and oriented x 3. Moving all extremities. Non-focal. Lines: No CVL / PI - Constitutional Vitals: Vital Signs Temp Pulse Resp BP Pulse Ox 97.9 F 64 16 106/60 98 09/02/18 07:05 09/02/18 07:05 09/02/18 07:05 09/02/18 07:05 09/02/18 07:05 Temperature -Last 24 Hours Temperature 97.9 F Temperature 98.1 F Temperature 98.7 F Temperature 98.1 F Temperature 97.9 F Temperature 97.9 F - Labs CBC & Chem 7: 09/02/18 11:33 08/30/18 04:34
[2018-09-02] MEDS: SODIUM CHLORIDE FLUSH SYRINGE 10 ML IV SCH (10:26)
[2018-09-02] MEDS: LOVENOX SUB-Q SCH (11:01)
[2018-09-02 12:02] LABS: Basophils % (Auto) 0.2 % (0.0-1.8); Eosinophils # (Auto) 0.2 K/mm3 (0.0-0.4); Eosinophils % (Auto) 1.7 % (0.0-4.3); Hematocrit 23.8 % (30.3-42.9); Hemoglobin 8.8 gm/dl (10.1-14.3); Lymphocytes # (Auto) 2.3 K/mm3 (1.2-5.4); Lymphocytes % (Auto) 24.6 % (13.4-35.0); Mean Corpuscular HGB Conc 37 % (30-34); Mean Corpuscular Volume 86 fl (79-97); Monocytes # (Auto) 0.9 K/mm3 (0.0-0.8); Monocytes % (Auto) 9.3 % (0.0-7.3); Platelet Count 748 K/mm3 (140-440); Red Blood Count 2.78 M/mm3 (3.65-5.03); Red Cell Distribution Width 14.4 % (13.2-15.2)
[2018-09-03] MEDS: SODIUM CHLORIDE FLUSH SYRINGE 10 ML IV SCH ×3 (01:00→10:00)
[2018-09-03] MEDS: MORPHINE IV PRN ×2 (01:10→07:11)
[2018-09-03] MEDS: UNASYN/NS 3 GM/100 ML 3 GM/100 ML BAG IV SCH ×2 (01:13→05:42)
[2018-09-03] MEDS: VANCOMYCIN/NS 1 GM/250 ML 1 GM/250 ML BAG IV SCH (04:32)
[2018-09-03] MEDS: ROBAXIN PO SCH ×2 (07:11→16:10)
--- NOTE | 2018-09-03 08:40 | Progress Note ---
Subjective Date of service: 09/03/18 Principal diagnosis: Left gluteal abscess Interval history: Plastic Surgery Progress Note Patient afebrile on Unasyn and Vancomycin, much more comfortable, still not much appetite. AFVSS Leukocytosis resolved Buttock Cultures NGTD with few GNRs, Blood final no growth Drain in place, outputs decreasing Buttocks soft, no erythema, edema improved, less tender Plan: Per ID consult patient can be discharged on Augmentin and Doxycycline for 10 days. Patient or lead handler need to be taught how to flush drain BID at home for discharge. I will remove the drain in clinic when outputs are appropriately low enough. Objective - Constitutional Vitals: Vital Signs - 12hr 09/02/18 09/03/18 23:54 04:43 Temperature 98.0 F 97.8 F Pulse Rate 62 61 Respiratory 18 20 Rate Blood Pressure 112/72 124/71 O2 Sat by Pulse 99 96 Oximetry - Labs CBC & Chem 7: 09/02/18 11:33 08/30/18 04:34 Labs: Abnormal lab results 09/02/18 Range/Units 11:33 RBC 2.78 L (3.65-5.03) M/mm3 Hgb 8.8 L (10.1-14.3) gm/dl Hct 23.8 L (30.3-42.9) % MCHC 37 H (30-34) % Plt Count 748 H (140-440) K/mm3 [place] % (Auto) 9.3 H (0.0-7.3) % [place] # 0.9 H (0.0-0.8) K/mm3 Medications & Allergies - Medications Allergies/Adverse Reactions: Allergies No Known Allergies Allergy (Verified 08/12/18 18:13) Home Medications: Home Medications Medication Instructions Recorded Confirmed Last Taken Type Albuterol Sulfate [Ventolin Hfa] 1 puff IH Q6H PRN 08/12/18 08/29/18 08/14/18 05:45 History buPROPion SR [Wellbutrin Sr] 150 mg PO BID 08/12/18 08/29/18 08/14/18 04:45 History Active Medications: Generic Name Dose Route Start Last Admin Trade Name Freq PRN Reason Stop Dose Admin Acetaminophen 650 mg 08/29/18 03:21 08/29/18 20:59 Tylenol PO 650 mg Q4H PRN Administration Pain MILD(1-3)/Fever >100.5/SHIN Enoxaparin Sodium 40 mg 08/29/18 10:00 09/02/18 11:01 Lovenox SUB-Q 40 mg QDAY@1000 RYLEY Administration Sodium Chloride 1,000 mls @ 150 mls/hr 08/29/18 04:00 09/02/18 08:39 Nacl 0.9% 1000 Ml IV 150 mls/hr DIRECT RYLEY Administration Ampicillin Sodium/Sulbactam Sodium 3 gm in 100 mls @ 200 mls/hr 08/31/18 12:00 09/03/18 05:42 Unasyn/Ns 3 Gm/100 Ml IV 200 mls/hr Q6HR RYLEY Administration Protocol Vancomycin HCl 1 gm in 250 mls @ 166.667 mls/hr 08/31/18 11:00 09/03/18 04:32 Vancomycin/Ns 1 Gm/250 Ml IV 166.667 mls/hr Q8H RYLEY Administration Methocarbamol 750 mg 08/30/18 15:00 09/03/18 07:11 Robaxin PO 750 mg Q8HR RYLEY Administration Morphine Sulfate 2 mg 08/29/18 03:21 09/03/18 07:11 Morphine IV 2 mg Q4H PRN Administration Pain, Moderate (4-6) Ondansetron HCl 4 mg 08/29/18 03:21 08/29/18 06:36 Zofran IV 4 mg Q8H PRN Administration Nausea And Vomiting Sodium Chloride 10 ml 08/29/18 10:00 09/03/18 01:13 Sodium Chloride Flush Syringe 10 Ml IV 10 ml BID RYLEY Administration Sodium Chloride 10 ml 08/29/18 03:21 Sodium Chloride Flush Syringe 10 Ml IV PRN PRN LINE FLUSH
--- NOTE | 2018-09-03 09:26 | Progress Note ---
Assessment and Plan Okay to discharge patient home with drainage catheter. Patient will follow up in our office in 3-4 days for drainage catheter removal. Okay to discharge home from an interventional radiology standpoint Subjective Date of service: 09/03/18 Principal diagnosis: Left gluteal abscess Interval history: Patient with a history of left gluteal abscess status post drainage procedure. The patient still has persistent approximately 30 mL per day of drainage. Otherwise doing very well. Objective - Constitutional Vitals: Vital Signs - 12hr 09/02/18 09/03/18 09/03/18 23:54 04:43 08:00 Temperature 98.0 F 97.8 F 97.7 F Pulse Rate 62 61 58 L Respiratory 18 20 18 Rate Blood Pressure 112/72 124/71 Blood Pressure 124/71 [Left] O2 Sat by Pulse 99 96 Oximetry General appearance: Present: no acute distress - EENT Eyes: EOM intact ENT: hearing intact - Neck Neck: supple, normal ROM - Respiratory Respiratory effort: normal Extremities: no ischemia - Gastrointestinal General gastrointestinal: Present: deferred Rectal Exam: deferred - Genitourinary Female genitourinary: deferred - Psychiatric Psychiatric: appropriate mood/affect, cooperative - Labs CBC & Chem 7: 09/02/18 11:33 08/30/18 04:34 Labs: Abnormal lab results 09/02/18 Range/Units 11:33 RBC 2.78 L (3.65-5.03) M/mm3 Hgb 8.8 L (10.1-14.3) gm/dl Hct 23.8 L (30.3-42.9) % MCHC 37 H (30-34) % Plt Count 748 H (140-440) K/mm3 [place] % (Auto) 9.3 H (0.0-7.3) % [place] # 0.9 H (0.0-0.8) K/mm3 Medications & Allergies - Medications Allergies/Adverse Reactions: Allergies No Known Allergies Allergy (Verified 08/12/18 18:13) Home Medications: Home Medications Medication Instructions Recorded Confirmed Last Taken Type Albuterol Sulfate [Ventolin Hfa] 1 puff IH Q6H PRN 08/12/18 08/29/18 08/14/18 05:45 History buPROPion SR [Wellbutrin Sr] 150 mg PO BID 08/12/18 08/29/18 08/14/18 04:45 History Active Medications: Generic Name Dose Route Start Last Admin Trade Name Freq PRN Reason Stop Dose Admin Acetaminophen 650 mg 08/29/18 03:21 08/29/18 20:59 Tylenol PO 650 mg Q4H PRN Administration Pain MILD(1-3)/Fever >100.5/SHIN Enoxaparin Sodium 40 mg 08/29/18 10:00 09/02/18 11:01 Lovenox SUB-Q 40 mg QDAY@1000 RYLEY Administration Sodium Chloride 1,000 mls @ 150 mls/hr 08/29/18 04:00 09/02/18 08:39 Nacl 0.9% 1000 Ml IV 150 mls/hr DIRECT RYLEY Administration Ampicillin Sodium/Sulbactam Sodium 3 gm in 100 mls @ 200 mls/hr 08/31/18 12:00 09/03/18 05:42 Unasyn/Ns 3 Gm/100 Ml IV 200 mls/hr Q6HR RYLEY Administration Protocol Vancomycin HCl 1 gm in 250 mls @ 166.667 mls/hr 08/31/18 11:00 09/03/18 04:32 Vancomycin/Ns 1 Gm/250 Ml IV 166.667 mls/hr Q8H RYLEY Administration Methocarbamol 750 mg 08/30/18 15:00 09/03/18 07:11 Robaxin PO 750 mg Q8HR RYLEY Administration Morphine Sulfate 2 mg 08/29/18 03:21 09/03/18 07:11 Morphine IV 2 mg Q4H PRN Administration Pain, Moderate (4-6) Ondansetron HCl 4 mg 08/29/18 03:21 08/29/18 06:36 Zofran IV 4 mg Q8H PRN Administration Nausea And Vomiting Sodium Chloride 10 ml 08/29/18 10:00 09/03/18 01:13 Sodium Chloride Flush Syringe 10 Ml IV 10 ml BID RYLEY Administration Sodium Chloride 10 ml 08/29/18 03:21 Sodium Chloride Flush Syringe 10 Ml IV PRN PRN LINE FLUSH
--- NOTE | 2018-09-03 09:39 | Progress Note ---
Assessment and Plan Cultures: 08/28/18 Blood: no growth 08/29/18 Surgical: no growth Assessment: 23 yo F PMH PCOS and asthma who is s/p [place] butt lift on 08/14/18 and was admitted on 08/28/18 with Left gluteal pain, fever. She was found to have a left gluteal abscess. 1) Sepsis: Resolved. Due to left gluteal abscess. Afebrile since 08/29/18. 2) Large multiloculated Left gluteal abscess after [place] butt lift on 08/14/18, s/p CT guided drainage by IR on 08/29/[address] 250 ml of purulent fluid obtained. Abscess culture and blood cultures no growth. 3) Thrombocytosis. Likely reactive. Improved. Plan: -discontinue unasyn and vancomycin -Clinically stable switched to Augmentin 875 mg PO every 12 hours and Doxycycline 100 mg PO every12 hours for total 14 days ending 09-11-18. -f/u ID clinic in one week [facility] M: [id number] O:[phone] Subjective Date of service: 09/03/18 Principal diagnosis: Left gluteal abscess Interval history: Patient seen and examined. Reports continued tenderness but improved left buttock pain. No fevers. Objective - Exam Narrative Exam: General appearance: Pt is awake, alert in NAD, conversant. Eyes: anicteric sclerae, moist conjunctivae; no lid-lag; PERRLA HENT: Atraumatic; oropharynx clear with moist mucous membranes and no mucosal ulcerations/no oral thrush; normal hard and soft palate. Normal external ears. Neck: Trachea midline; supple, no thyromegaly or lymphadenopathy. Lungs: CTA, with normal respiratory effort and no intercostal retractions. CV: RRR, no murmurs. Abdomen: Soft, non-tender; no masses or hepatosplenomegaly Gluteal: Left buttock with IR drain in place with purulent drainage 5ml/ just emptied for 30ml. There is induration around drain and some erythema. +tender to palpation. +warm. Extremities: No peripheral edema or extremity lymphadenopathy Skin: Normal temperature, turgor and texture; no rash, ulcers or subcutaneous nodules Psych: Appropriate affect, alert and oriented to person, place and time. Neuro: alert and oriented x 3. Moving all extremities. Non-focal. Lines: No CVL /PICC, - Constitutional Vitals: Vital Signs Temp Pulse Resp BP Pulse Ox 97.7 F 58 L 18 124/71 96 09/03/18 08:00 09/03/18 08:00 09/03/18 08:00 09/03/18 08:00 09/03/18 04:43 Temperature -Last 24 Hours Temperature 97.7 F Temperature 97.8 F Temperature 98.0 F Temperature 98.6 F Temperature 97.1 F Temperature 97.6 F - Labs CBC & Chem 7: 09/02/18 11:33 08/30/18 04:34 Labs: Abnormal lab results 09/02/18 Range/Units 11:33 RBC 2.78 L (3.65-5.03) M/mm3 Hgb 8.8 L (10.1-14.3) gm/dl Hct 23.8 L (30.3-42.9) % MCHC 37 H (30-34) % Plt Count 748 H (140-440) K/mm3 [place] % (Auto) 9.3 H (0.0-7.3) % [place] # 0.9 H (0.0-0.8) K/mm3
[2018-09-03] MEDS ORDERED: AUGMENTIN 875 MG PO SCH (10:00)
[2018-09-03] MEDS ORDERED: VIBRAMYCIN PO SCH (10:00)
[2018-09-03] MEDS: LOVENOX SUB-Q SCH (10:51)
--- NOTE | 2018-09-03 15:04 | Discharge Summary ---
Providers - Providers Date of Admission: 08/29/18 04:17 Date of discharge: 09/03/18 Attending physician: FLOR JACOBS 08/29/18 02:41 Consult to Physician [CONS] Stat Comment: Dr. Vasquez spoke with Dr. Hinkle @ 0241 Consulting Provider: MARTHA HINKLE Physician Instructions: Reason For Exam: buttock abscess 08/29/18 08:40 Consult to Interventional Radiology [CONS] Stat Consulting Provider: DEMOND VALDEZ Reason For Exam: Patient has an intragluteal abscess Place consult to:: Interventional Radiology Notified:: Radiology Dept Time called:: 08:45 08/30/18 11:59 Consult to Physician [CONS] Routine Comment: Consulting Provider: NING POND Physician Instructions: Reason For Exam: buttock abscess Primary care physician: MK SEVILLA Hospitalization Condition: Fair Hospital course: Patient 23-year-old lady with a history of PCOS, asthma, presented to emergency room with complaints of pain in the left buttock. Status post [place] butt lift on the first, states that the left side was not healing as fast as the right. The left side felt hot, tight and painful. She saw her plastic surgeon, day prior to admission who gave her Bactrim, Percocet, her symptoms worsen, develop fever and she was sent to the emergency room for further evaluation. She was seen and examined and diagnosed with sepsis due to gluteal abscess. Was started on iv Antibiotc, admitted. She was seen by IR, Surgeon, ID Physician. She had large multiloculated left gluteal abscess after [place] butt lift on 08/14/18, and had s/p CT guided drainage by IR on 08/29/18 with drain left in place. About 250 ml of purulent fluid obtained. He did well postoperatively and was discharged home with surgical drain in place on 09/03/2018 on Augmentin and Doxycycline to follow as an outpatient. Total time spent on discharge, 34 mins Disposition: DC-01 TO HOME OR SELFCARE - Discharge Diagnoses (1) Sepsis Status: Acute (2) Gluteal abscess Status: Acute (3) Leukocytosis Status: Acute (4) Anemia Status: Acute (5) Hyponatremia Status: Acute Core Measure Documentation - Palliative Care Palliative Care/ Comfort Measures: Not Applicable - Core Measures Any of the following diagnoses?: none Exam - Constitutional Vitals: Temp Pulse Resp BP Pulse Ox 97.7 F 58 L 18 124/71 96 09/03/18 08:00 09/03/18 08:00 09/03/18 08:00 09/03/18 08:00 09/03/18 04:43 Plan Activity: advance as tolerated Diet: low fat, low cholesterol, low salt Additional Instructions: 1.Follow up with PCP or [facility] in 1 week. 2.Follow up with Dr. Valdez in 4 days. 3.Follow up with CARMELITA Wesley in 1 week. 4.Follow up with Dr. Martha Hinkle, Surgeon in 1 week. 4.Flush surgical drain twice daily Follow up with: MK SEVILLA MD [Primary Care Provider] - 3-5 Days Prescriptions: Amoxicillin/K Clav Tab [Augmentin 875MG TAB] 1 each PO Q12HR #16 tablet Doxycycline Monohydrate 100 mg PO BID #16 capsule HYDROcodone/APAP 5-325 [[place] 5/325] 1 each PO Q6HR PRN #10 tablet PRN Reason: Pain
[2018-09-03] MEDS: NACL 0.9% 1000 ML 1,000 ML IV SCH (15:14)
[2018-09-03 17:10] VITALS: BP 117/57
--- NOTE | 2018-09-05 16:09 | Cat Scan Report ---
EXAM: CT guided 10 Fr left intragluteal muscle abscess drain placement CLINICAL INDICATION: Infected left muscle abscess after butt lift procedure. DATE: 08/29/18 LABORER POWERHOUSE: DEMOND HOLDER MD MEDICATIONS: Conscious sedation using Versed and fentanyl was performed under guidance of radiologic nursing. Continuous cardiopulmonary monitoring was utilized. PROCEDURE: Following an explanation of the risks, benefits and alternatives; written informed consent was obtained. The patient was brought to the CT suite and placed in the prone position on the CT table. Senior Python Developer CT was performed of the pelvis. After determining the appropriate site, the skin was infiltrated with lidocaine and a finder needle was placed. Intermittent CT was performed until the desired position was identified. The 18 gauge trocar needle was inserted into the left gluteal abscess . Aspiration was performed and sent to the lab for analysis. J wire was then advanced through the needle and into the collection. The needle was exchanged for multiple dilators that were used to serially dilate over the wire. A 10 Fr APD drain was advanced over the wire and metal stiffener. The metal stiffener and wire were removed. Final CT scanning was performed. The pigtail was secured and aspirated until no more material could be aspirated. Sterile bandage was applied. The patient tolerated the procedure well. There were no immediate postprocedural complications. FINDINGS: 1. Initial CT demonstrates left gluteal multiloculated abscess. There is a satisfactory window for CT drainage. 2. Intermittent CT demonstrates the 18 gauge needle was placed in the left gluteal multiloculated abscess. 3. Wire is coiled in the left gluteal fluid collection. 4. Final CT documents placement of a 10 Fr drain in the left gluteal fluid collection. IMPRESSION: Successful CT guided 10 [place] drain placement in a fluid collection/abscess.
== END 2018-09-03 20:05 | disposition home or self-care (01) | DRG 919 ==
LOC: ED 19:57 → 3B-SURG 08-29 04:17
PROVIDERS: ADMIT Internal Medicine; ATTEND Internal Medicine
PROC: 0Y9130Z Drainage of Left Buttock with Drainage Device, Percutaneous Approach (ICD-10-PCS; principal; 2018-08-29)
DX: L76.82 Other postprocedural complications of skin and subcutaneous tissue (principal); A41.9 Sepsis, unspecified organism; L02.31 Cutaneous abscess of buttock; E87.1 Hypo-osmolality and hyponatremia; Z79.899 Other long term (current) drug therapy; J45.909 Unspecified asthma, uncomplicated; F17.200 Nicotine dependence, unspecified, uncomplicated; E28.2 Polycystic ovarian syndrome; D47.3 Essential (hemorrhagic) thrombocythemia; Z82.49 Family history of ischemic heart disease and other diseases of the circulatory system; Z72.89 Other problems related to lifestyle
CPT/HCPCS: 36415; 49406; 72193; 80048; 80053; 80202; 81001; 82140; 84702; 85007; 85025; 87040; 87116; 88112; 96365; 96375; 99285; G0378; C1769; J0295; J0690; J1650; J2250; J2270; J2405; J2543; J2800; J3010; J3370; J7030; J7040; J7050; Q9967